=== PATIENT | female | born 1970 | race Caucasian/White ===

== ENCOUNTER 2018-09-16 15:41 | Emergency (ER) | payer OTHER ==
[2018-09-16 15:49] VITALS: RESP 18
--- NOTE | 2018-09-16 15:58 | ED ---
Psych HPI - General Chief Complaint: Psychiatric Symptoms Stated Complaint: psych eval Time Seen by Provider: 09/16/18 15:49 Source: patient, EMS, RN notes reviewed Mode of arrival: EMS Limitations: no limitations - History of Present Illness Initial Comments: 48-year-old female presents emergency department has transfer from [facility] for psychiatric evaluation. Patient presented for bizarre behaviors, altered mental status, stress anxiety. Patient states this all started after she was cleaning out her parents house and which her father recently passed. Patient states that all the stressors caught up to her. Patient states that she just does not feel well she denies any suicidal or homicidal. Denies any illicit drug use. Patient denies any current alcohol abuse. He has no physical complaints. - Related Data Home Medications Medication Instructions Recorded Confirmed Naproxen Sodium [Aleve] 220 mg PO DAILY PRN 09/16/18 09/16/18 Allergies Allergy/AdvReac Type Severity Reaction Status Date / Time adhesive tape Allergy Anaphylaxis Verified 09/16/18 16:08 tramadol Allergy Anaphylaxis Verified 09/16/18 16:08 Review of Systems ROS Statement: Those systems with pertinent positive or pertinent negative responses have been documented in the HPI. ROS Other: All systems not noted in ROS Statement are negative. Past Medical History Past Medical History: No Reported History History of Any Multi-Drug Resistant Organisms: None Reported Past Surgical History: Tubal Ligation Past Psychological History: Anxiety Smoking Status: Current every day smoker Past Alcohol Use History: Occasional Past Drug Use History: None Reported General Exam Limitations: no limitations General appearance: alert, in no apparent distress, anxious Head exam: Present: atraumatic, normocephalic, normal inspection Eye exam: Present: normal appearance, PERRL, EOMI. Absent: scleral icterus, conjunctival injection, periorbital swelling ENT exam: Present: normal exam, normal oropharynx, mucous membranes moist, TM's normal bilaterally Neck exam: Present: normal inspection, full ROM. Absent: tenderness, meningismus, lymphadenopathy Respiratory exam: Present: normal lung sounds bilaterally. Absent: respiratory distress, wheezes, rales, rhonchi, stridor Cardiovascular Exam: Present: regular rate, normal rhythm, normal heart sounds. Absent: systolic murmur, diastolic murmur, rubs, gallop, clicks GI/Abdominal exam: Present: soft, normal bowel sounds. Absent: distended, tenderness, guarding, rebound, rigid Neurological exam: Present: alert, oriented X3, CN II-XII intact Psychiatric exam: Present: anxious Course Vital Signs 09/16/18 09/16/18 15:42 18:44 Temperature 97.4 F L 98.0 F Pulse Rate 82 74 Respiratory 18 18 Rate Blood Pressure 149/99 149/95 O2 Sat by Pulse 99 97 Oximetry Medical Decision Making - Medical Decision Making Patient signed out AGAINST MEDICAL ADVICE Dr. Guerrero aware. Disposition Clinical Impression: Acute anxiety Disposition: Left Against Medical Advice Referrals: Luisana Marquez MD [Primary Care Provider] - 1-2 days
[2018-09-16 18:45] VITALS: BP 149/95; PULSE 74; TEMP 98
== END 2018-09-16 18:45 | disposition left against medical advice (07) ==
LOC: EC 15:41
DX: F41.9 Anxiety disorder, unspecified (principal); R41.82 Altered mental status, unspecified; F43.8 Other reactions to severe stress; F17.200 Nicotine dependence, unspecified, uncomplicated; Z88.5 Allergy status to narcotic agent; Z91.048 Other nonmedicinal substance allergy status; Z53.20 Procedure and treatment not carried out because of patient's decision for unspecified reasons
CPT/HCPCS: 99284

== ENCOUNTER 2019-07-17 21:12 | Inpatient (IN) | payer OTHER ==
[2019-07-17] MEDS ORDERED: IPRATROPIUM-ALBUTEROL 3 ML NEB INHALATION STA (21:23)
[2019-07-17] MEDS ORDERED: methylPREDNISolone SOD SUCCI 125 MG/2 ML VIAL IV STA (21:23)
--- NOTE | 2019-07-17 21:35 | ED ---
SOB HPI - General Stated Complaint: Shortness of Breath Time Seen by Provider: 07/17/19 21:15 Source: patient, EMS Limitations: physical limitation (Dyspnea) - History of Present Illness Initial Comments: Patient's 49-year-old woman brought from home by ambulance. History limited as patient is very dyspneic. She states has been having shortness of breath worsening all day. She found she can no longer breathe at home because it was "too hot inside." EMS arrived to find her sitting on the porch outside in respiratory distress. Patient denies chest pain. MD Complaint: shortness of breath Onset/Timin -: hour(s) Consistency: constant Improves With: upright position Worsens With: lying flat Known History Of: COPD Associated Symptoms: denies other symptoms - Related Data Home Medications Medication Instructions Recorded Confirmed Naproxen Sodium [Aleve] 220 mg PO DAILY PRN 09/16/18 09/16/18 Allergies Allergy/AdvReac Type Severity Reaction Status Date / Time adhesive tape Allergy Anaphylaxis Verified 09/16/18 16:08 influenza virus vaccine, Allergy Unknown Verified 07/17/19 21:30 specific tetanus immune globulin Allergy Unknown Verified 07/17/19 21:30 tramadol Allergy Anaphylaxis Verified 09/16/18 16:08 Review of Systems ROS Statement: Those systems with pertinent positive or pertinent negative responses have been documented in the HPI. ROS Other: All systems not noted in ROS Statement are negative. Limitations: ROS unobtainable due to patients medical condition Constitutional: Denies: fever Respiratory: Reports: cough, dyspnea, wheezes. Denies: hemoptysis Cardiovascular: Denies: chest pain, edema, syncope Gastrointestinal: Denies: abdominal pain, vomiting Musculoskeletal: Denies: back pain Skin: Denies: rash Neurological: Denies: headache Past Medical History Past Medical History: No Reported History History of Any Multi-Drug Resistant Organisms: None Reported Past Surgical History: Tubal Ligation Past Psychological History: Anxiety Smoking Status: Current every day smoker Past Alcohol Use History: Occasional Past Drug Use History: None Reported General Exam General appearance: alert, in distress Head exam: Present: atraumatic, normocephalic Eye exam: Present: normal appearance Neck exam: Present: full ROM Respiratory exam: Present: respiratory distress, wheezes, accessory muscle use, decreased breath sounds. Absent: rales, rhonchi, stridor Cardiovascular Exam: Present: normal rhythm, tachycardia, normal heart sounds. Absent: systolic murmur, diastolic murmur, rubs, gallop GI/Abdominal exam: Present: soft. Absent: distended, tenderness, guarding, rebound, rigid, mass Extremities exam: Present: normal inspection, normal capillary refill. Absent: pedal edema, calf tenderness Back exam: Present: normal inspection. Absent: CVA tenderness (R), CVA tenderness (L) Neurological exam: Present: alert Skin exam: Present: warm, dry, intact, normal color. Absent: rash Course Vital Signs 07/17/19 07/17/19 07/17/19 21:25 21:59 22:05 Temperature 98.4 F Pulse Rate 107 H 109 H 105 H Respiratory 29 H 24 Rate Blood Pressure 124/95 155/106 O2 Sat by Pulse 91 L 99 Oximetry 07/17/19 07/17/19 22:47 23:11 Temperature Pulse Rate 102 H 114 H Respiratory 30 H Rate Blood Pressure 132/80 O2 Sat by Pulse 93 L Oximetry Medical Decision Making - Lab Data Result diagrams: 07/17/19 21:20 07/17/19 21:20 Lab Results 07/17/19 07/17/19 07/17/19 Range/Units 21:20 21:20 21:20 WBC 11.3 H (3.8-10.6) k/uL RBC 5.06 (3.80-5.40) m/uL Hgb 16.1 H (11.4-16.0) gm/dL Hct 49.7 H (34.0-46.0) % MCV 98.4 (80.0-100.0) fL MCH 31.9 (25.0-35.0) pg MCHC 32.5 (31.0-37.0) g/dL RDW 12.6 (11.5-15.5) % Plt Count 300 (150-450) k/uL Neutrophils % (Manual) 81 % Lymphocytes % (Manual) 9 % Monocytes % (Manual) 9 % Eosinophils % (Manual) 1 % Neutrophils # (Manual) 9.15 H (1.3-7.7) k/uL Lymphocytes # (Manual) 1.02 (1.0-4.8) k/uL Monocytes # (Manual) 1.02 H (0-1.0) k/uL Eosinophils # (Manual) 0.11 (0-0.7) k/uL Nucleated RBCs 0 (0-0) /100 WBC Manual Slide Review Performed PT 9.6 (9.0-12.0) sec INR 0.9 (<1.2) APTT 24.1 (22.0-30.0) sec D-Dimer 0.21 (<0.60) mg/L FEU Sodium 135 L (137-145) mmol/L Potassium 4.1 (3.5-5.1) mmol/L Chloride 100 (98-107) mmol/L Carbon Dioxide 29 (22-30) mmol/L Anion Gap 6 mmol/L BUN 9 (7-17) mg/dL Creatinine 0.82 (0.52-1.04) mg/dL Est GFR (CKD-EPI)AfAm >90 (>60 ml/min/1.73 sqM) Est GFR (CKD-EPI)NonAf 83 (>60 ml/min/1.73 sqM) Glucose 107 H (74-99) mg/dL Plasma Lactic Acid Kyle (0.7-2.0) mmol/L Calcium 9.0 (8.4-10.2) mg/dL Magnesium 2.1 (1.6-2.3) mg/dL Total Bilirubin 0.7 (0.2-1.3) mg/dL AST 21 (14-36) U/L ALT 15 (4-34) U/L Alkaline Phosphatase 74 (38-126) U/L Troponin I (0.000-0.034) ng/mL NT-Pro-B Natriuret Pep pg/mL Total Protein 7.1 (6.3-8.2) g/dL Albumin 4.1 (3.5-5.0) g/dL Influenza Type A RNA (Not Detectd) Influenza Type B (PCR) (Not Detectd) 07/17/19 07/17/19 07/17/19 Range/Units 21:20 21:20 21:20 WBC (3.8-10.6) k/uL RBC (3.80-5.40) m/uL Hgb (11.4-16.0) gm/dL Hct (34.0-46.0) % MCV (80.0-100.0) fL MCH (25.0-35.0) pg MCHC (31.0-37.0) g/dL RDW (11.5-15.5) % Plt Count (150-450) k/uL Neutrophils % (Manual) % Lymphocytes % (Manual) % Monocytes % (Manual) % Eosinophils % (Manual) % Neutrophils # (Manual) (1.3-7.7) k/uL Lymphocytes # (Manual) (1.0-4.8) k/uL Monocytes # (Manual) (0-1.0) k/uL Eosinophils # (Manual) (0-0.7) k/uL Nucleated RBCs (0-0) /100 WBC Manual Slide Review PT (9.0-12.0) sec INR (<1.2) APTT (22.0-30.0) sec D-Dimer (<0.60) mg/L FEU Sodium (137-145) mmol/L Potassium (3.5-5.1) mmol/L Chloride (98-107) mmol/L Carbon Dioxide (22-30) mmol/L Anion Gap mmol/L BUN (7-17) mg/dL Creatinine (0.52-1.04) mg/dL Est GFR (CKD-EPI)AfAm (>60 ml/min/1.73 sqM) Est GFR (CKD-EPI)NonAf (>60 ml/min/1.73 sqM) Glucose (74-99) mg/dL Plasma Lactic Acid Kyle 1.8 (0.7-2.0) mmol/L Calcium (8.4-10.2) mg/dL Magnesium (1.6-2.3) mg/dL Total Bilirubin (0.2-1.3) mg/dL AST (14-36) U/L ALT (4-34) U/L Alkaline Phosphatase (38-126) U/L Troponin I <0.012 (0.000-0.034) ng/mL NT-Pro-B Natriuret Pep 283 pg/mL Total Protein (6.3-8.2) g/dL Albumin (3.5-5.0) g/dL Influenza Type A RNA (Not Detectd) Influenza Type B (PCR) (Not Detectd) 07/17/19 Range/Units 21:45 WBC (3.8-10.6) k/uL RBC (3.80-5.40) m/uL Hgb (11.4-16.0) gm/dL Hct (34.0-46.0) % MCV (80.0-100.0) fL MCH (25.0-35.0) pg MCHC (31.0-37.0) g/dL RDW (11.5-15.5) % Plt Count (150-450) k/uL Neutrophils % (Manual) % Lymphocytes % (Manual) % Monocytes % (Manual) % Eosinophils % (Manual) % Neutrophils # (Manual) (1.3-7.7) k/uL Lymphocytes # (Manual) (1.0-4.8) k/uL Monocytes # (Manual) (0-1.0) k/uL Eosinophils # (Manual) (0-0.7) k/uL Nucleated RBCs (0-0) /100 WBC Manual Slide Review PT (9.0-12.0) sec INR (<1.2) APTT (22.0-30.0) sec D-Dimer (<0.60) mg/L FEU Sodium (137-145) mmol/L Potassium (3.5-5.1) mmol/L Chloride (98-107) mmol/L Carbon Dioxide (22-30) mmol/L Anion Gap mmol/L BUN (7-17) mg/dL Creatinine (0.52-1.04) mg/dL Est GFR (CKD-EPI)AfAm (>60 ml/min/1.73 sqM) Est GFR (CKD-EPI)NonAf (>60 ml/min/1.73 sqM) Glucose (74-99) mg/dL Plasma Lactic Acid Kyle (0.7-2.0) mmol/L Calcium (8.4-10.2) mg/dL Magnesium (1.6-2.3) mg/dL Total Bilirubin (0.2-1.3) mg/dL AST (14-36) U/L ALT (4-34) U/L Alkaline Phosphatase (38-126) U/L Troponin I (0.000-0.034) ng/mL NT-Pro-B Natriuret Pep pg/mL Total Protein (6.3-8.2) g/dL Albumin (3.5-5.0) g/dL Influenza Type A RNA Not Detected (Not Detectd) Influenza Type B (PCR) Not Detected (Not Detectd) - EKG Data -: EKG Interpreted by Me EKG shows normal: sinus rhythm (With frequent PVCs), intervals (Normal), QRS complexes (Low-voltage QRS complex) Rate: tachycardia (Rate 119 bpm) Disposition Clinical Impression: COPD exacerbation, COPD with acute exacerbation Disposition: ADMITTED IP TO THIS HOSP Condition: Fair Referrals: Luisana Marquez MD [Primary Care Provider] - 1-2 days
[2019-07-17 21:46] LABS: HCT 49.7 % (34.0-46.0); HGB 16.1 gm/dL (11.4-16.0); MCH 31.9 pg (25.0-35.0); MCHC 32.5 g/dL (31.0-37.0); MCV 98.4 fL (80.0-100.0); Mean Platelet Volume 7.4; Platelet Count 300 k/uL (150-450); RBC 5.06 m/uL (3.80-5.40); RDW 12.6 % (11.5-15.5); WBC 11.3 k/uL (3.8-10.6)
--- NOTE | 2019-07-17 21:51 | XR ---
EXAMINATION TYPE: XR chest 1V portable DATE OF EXAM: 07/17/2019 COMPARISON: 04/12/2012 HISTORY: Short of breath TECHNIQUE: FINDINGS: Heart and mediastinum are normal. Lungs are clear. Diaphragm is normal. Bony thorax is inta ct. Pulmonary vascularity is normal. There are chest leads. 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 IMPRESSION: No active cardiopulmonary disease. No change.
[2019-07-17 21:57] LABS: D-Dimer 0.21 mg/L FEU (<0.60); INR 0.9 (<1.2); Partial Thromboplastin Time 24.1 sec (22.0-30.0); Prothrombin Time 9.6 sec (9.0-12.0)
[2019-07-17 22:03] LABS: ALT 15 U/L (4-34); AST 21 U/L (14-36); African American GFR (CKD) >90 (>60 ml/min/1.73 sqM); Albumin 4.1 g/dL (3.5-5.0); Alkaline Phosphatase 74 U/L (38-126); Anion Gap 6 mmol/L; Blood Urea Nitrogen 9 mg/dL (7-17); Carbon Dioxide 29 mmol/L (22-30); Chloride 100 mmol/L (98-107); Glucose 107 mg/dL (74-99); Magnesium 2.1 mg/dL (1.6-2.3); Non-African American GFR(CKD) 83 (>60 ml/min/1.73 sqM); Potassium 4.1 mmol/L (3.5-5.1); Sodium 135 mmol/L (137-145); Total Bilirubin 0.7 mg/dL (0.2-1.3); Total Protein 7.1 g/dL (6.3-8.2)
[2019-07-17 22:20] LABS: Eosinophils # (M) 0.11 k/uL (0-0.7); Lymphocytes # (M) 1.02 k/uL (1.0-4.8); Monocytes # (M) 1.02 k/uL (0-1.0); Neutrophils # (M) 9.15 k/uL (1.3-7.7); Neutrophils % (M) 81 %; Nucleated Red Blood Cells 0 /100 WBC (0-0); Total Cells Counted 100
[2019-07-17] MEDS ORDERED: ALBUTEROL NEBULIZED 2.5 MG/3 ML INHALATION STA (23:54)
[2019-07-17] MEDS ORDERED: ALBUTEROL NEBULIZED 2.5 MG/3 ML INHALATION PRN (23:55)
[2019-07-18 00:29] LABS: Appearance,Urine Clear (Clear); Bilirubin,Urine Negative (Negative); Blood,Urine Trace (Negative); Color,Urine Yellow; Glucose,Urine (UA) Negative (Negative); Ketones,Urine Negative (Negative); Leukocyte Esterase,Urine Negative (Negative); Mucus,Urine Rare /hpf; Nitrite,Urine Negative (Negative); PH, Urine 5.5 (5.0-8.0); Protein,Urine Negative (Negative); RBC,Urine 1 /hpf (0-5); Specific Gravity,Urine 1.012 (1.001-1.035); Squamous Epithelial Cell,Urine 3 /hpf (0-4); Urobilinogen,Urine <2.0 mg/dL (<2.0); WBC,Urine 1 /hpf (0-5)
[2019-07-18 00:42] LABS: Cocaine Screen,Urine Not Detected (NotDetected); Phencyclidine Screen,Urine Not Detected (NotDetected)
[2019-07-18 00:43] LABS: Amphetamine Screen,Urine Detected (NotDetected); Barbiturate Screen,Urine Not Detected (NotDetected); Benzodiazepines Screen,Urine Not Detected (NotDetected); Methadone Screen, Urine Not Detected (NotDetected); Opiate Screen,Urine Detected (NotDetected); Oxycodone Screen, Urine Not Detected (NotDetected); Tricyclic Antidepressant,Urine Not Detected (NotDetected); Urn Cannabinoid Scrn Not Detected (NotDetected)
[2019-07-18] MEDS: SODIUM CHLORIDE 0.9% 1,000 ML IV SCH ×2 (07:10→08:57)
[2019-07-18] MEDS: IPRATROPIUM-ALBUTEROL 3 ML NEB INHALATION SCH ×4 (07:39→20:20)
[2019-07-18] MEDS ORDERED: predniSONE 20 MG TAB PO SCH (09:00)
[2019-07-18] MEDS ORDERED: IPRATROPIUM-ALBUTEROL 3 ML NEB INHALATION PRN (10:08)
[2019-07-18] MEDS ORDERED: ACETAMINOPHEN TAB 500 MG TAB PO PRN (10:09)
[2019-07-18] MEDS ORDERED: ALPRAZolam 0.25 MG TAB PO PRN (10:09)
[2019-07-18] MEDS: HYDROcodone/APAP 7.5-325MG 1 EACH TAB PO PRN ×2 (11:16→20:52)
[2019-07-18 11:51] LABS: Glucose,Whole Blood 143 mg/dL (75-99)
[2019-07-18] MEDS: INSULIN ASPART (NovoLOG) 100 UNIT/ML VIAL SQ SCH ×3 (12:46→20:51)
[2019-07-18] MEDS: HEPARIN SODIUM,PORCINE 5,000 UNIT/ML 1 ML VIAL SQ SCH ×2 (12:54→20:52)
[2019-07-18] MEDS: methylPREDNISolone SOD SUCCI 125 MG/2 ML VIAL IV SCH ×2 (12:54→20:52)
[2019-07-18] MEDS: NICOTINE 14MG/24HR PATCH TRANSDERM SCH (12:54)
[2019-07-18 17:16] LABS: Glucose,Whole Blood 222 mg/dL (75-99)
--- NOTE | 2019-07-18 18:52 | HP ---
HISTORY AND PHYSICAL CHIEF COMPLAINT: Shortness of breath. HISTORY OF PRESENT ILLNESS: This 49-year-old woman with a past medical history of no significant medical issues except some anxiety, being followed by Dr. Marquez in the outpatient setting, had increasing shortness of breath. Patient had increased shortness of breath with cough and sputum for the last couple of days. Patient apparently continues to smoke. After bronchodilators, the patient is feeling slightly better. Of note, apparently the patient's daughter and son-in-law were visiting and the daughter spent some time in [place] and recently came back about 2 weeks ago. The apparently did not go to [place] but was symptomatic with shortness of breath and cough and similar symptoms. We contacted the Infection Control Division through the staff and they actually cleared the patient as far as the new coronavirus NCOV is concerned. The patient is being closely monitored at this time. There is no history of any fever, rigor or chills. No history of headache, loss of consciousness, seizures. PAST MEDICAL HISTORY: History of anxiety. History of nicotine dependence. HOME MEDICATIONS: 1. Spiriva 1 puff daily. 2. [place] 1 tablet b.i.d. p.r.n. 3. Zyrtec 10 mg p.o. daily. 4. Ventolin 2.5 q.i.d. p.r.n. ALLERGIES: ADHESIVE TAPES, INFLUENZA, TETANUS TOXOID, ULTRAM. FAMILY HISTORY: No history of heart disease or strokes in the family. SOCIAL HISTORY: History of smoking. No history alcohol. No history of substance abuse. REVIEW OF SYSTEMS: ENT: No diminished hearing. No diminished vision. CARDIOVASCULAR SYSTEM: No angina, palpitations. RESPIRATORY SYSTEM: As mentioned earlier. GI: No nausea, vomiting. : No dysuria or retention. NERVOUS SYSTEM: No numbness, weakness. ALLERGY/IMMUNOLOGY: No asthma, hayfever. MUSCULOSKELETAL: As mentioned earlier. HEMATOLOGY/ONCOLOGY: No history of anemia. ENDOCRINE: No history of diabetes, hypothyroidism. CONSTITUTIONAL: As mentioned earlier. DERMATOLOGY: Negative. RHEUMATOLOGY: Negative. PSYCHIATRY: As mentioned earlier. PHYSICAL EXAMINATION: Patient is alert and oriented x3. Pulse is 100, blood pressure 124/82, respiration 12, temperature 98.3, pulse ox 100% on BiPAP. HEENT: Conjunctivae normal. Oral mucosa moist. NECK: No jugular venous distention. No carotid bruit. No lymph node enlargement. CARDIOVASCULAR SYSTEM: S1, S2 muffled. No S3. No S4. RESPIRATORY SYSTEM: Breath sounds diminished at the bases. Bilateral scattered rhonchi and crackles. Expiratory wheezing also present. ABDOMEN: Soft, non-tender. No mass palpable. LEGS: No edema. No swelling. NERVOUS SYSTEM: Higher functions as mentioned earlier. Moves all 4 limbs. No focal motor or sensory deficit. LYMPHATICS: No lymph node palpable in neck, axillae or groin. SKIN: No ulcer, rash, bleeding. JOINTS: No active deforming arthropathy. LABS/IMAGING: WBC 7.3, sodium 135. Glucose 143. UA noted. Drug screen is positive for amphetamines and opiates. Influenza negative. Chest x-ray, which was personally reviewed by me, showed increased bronchovascular markings. ASSESSMENT: 1. Chronic obstructive pulmonary disease, acute exacerbation, with acute purulent tracheobronchitis with acute hypoxic respiratory failure; was on BiPAP. 2. Increased white count. 3. Continued ongoing nicotine dependence. 4. Elevated random blood sugar, possibly secondary to steroids. 5. Hyponatremia, mild. 6. History of anxiety. 7. NO CODE NO CPR, NO VENT. RECOMMENDATIONS AND DISCUSSION: In this 49-year-old woman who presented with multiple complex medical issues, we will monitor the patient closely. Will optimize the bronchodilator treatment. Empiric antibiotics. Flu is negative. IV steroids. Monitor blood sugars closely. Otherwise, we will continue to monitor. Obtain cultures. Pulmonary consult evaluations. Smoking cessation advised. Prognosis guarded because of multiple complex medical issues. Repeat labs are ordered. Discussed with the patient, who understands and agrees. Further recommendations to follow. A copy of this dictation is being forwarded to Dr. Marquez, who is the primary physician. MMODL / IJN: [id number] /
[2019-07-18] MEDS: BUDESONIDE 1 MG/2 ML NEBU INHALATION SCH (20:20)
[2019-07-18] MEDS: FORMOTEROL FUMARATE 20 MCG/2 ML NEBU INHALATION SCH (20:38)
[2019-07-18 20:47] LABS: Glucose,Whole Blood 128 mg/dL (75-99)
[2019-07-18] MEDS: LORazepam 0.5 MG TAB PO PRN (21:44)
--- NOTE | 2019-07-18 22:34 | CONS ---
CONSULTATION PULMONARY/CRITICAL CARE CONSULTATION: DATE OF SURGERY: July 18, 2019. REASON FOR CONSULTATION: Shortness of breath. HISTORY OF PRESENT ILLNESS: This is a 49-year-old female who sees Dr. Marquez as a primary. She apparently comes into the emergency room at 21:12 on February 14 for complaints of increasing shortness of breath. She apparently had been having shortness of breath for some time prior to admission. She was found by EMS to be on the front porch, very short of breath with severe conversational dyspnea. The patient was brought in by ambulance to the emergency room to be evaluated. She apparently was too hot inside of her house and that is why she was sitting on the front porch. She apparently denied any chest pain or pressure. She does admit to cough and wheezing. She does admit to some minimal cough and minimal phlegm production. There is no chest pain or chest discomfort. She denies any nausea or vomiting or diarrhea. There are no genitourinary complaints. The patient is feeling a bit better today compared to yesterday. She apparently is a heavy smoker. MEDICATIONS: Reviewed. She is on naproxen, and also on Spiriva, [place], Zyrtec, albuterol and albuterol inhaler. ALLERGIES: Include ADHESIVE TAPE, INFLUENZA VACCINE, TETANUS VACCINE, AND TRAMADOL. MEDICAL HISTORY: Includes COPD. The patient also apparently has chronic pain syndrome. SURGICAL HISTORY: Includes tubal ligation. SOCIAL HISTORY: Positive for ongoing tobacco use. She also has a history of occasional alcohol use. Interestingly, her drug screen was positive for amphetamines, methamphetamines and opiates. FAMILY HISTORY: Negative. States his mother and father were healthy. REVIEW OF SYSTEMS: CONSTITUTIONAL weakness. NEUROLOGIC negative. HEENT negative. CARDIOVASCULAR negative. PULMONARY: Shortness of breath, chest tightness, wheezing and cough. GI negative. negative. RHEUMATOLOGIC negative. IMMUNOLOGIC negative. ENDOCRINOLOGIC negative. DERMATOLOGIC negative. PHYSICAL EXAMINATION: VITAL SIGNS: Current vital signs are reviewed. Temperature is 98.3, heart rate 103, respiratory rate 22, blood pressure 124/82, and saturations are 94%. On BiPAP, she was 100%. Appears mildly tachypneic and dyspneic. Was lying on her right side, sleeping when I first walked into the room. HEENT examination is grossly unremarkable. Nasal O2 noted. NECK: Supple. Full range of motion. No adenopathy. Neck veins are flat. CARDIOVASCULAR: Examination reveals regular rhythm and rate. Heart rate right around 100 and regular. S1, S2 normal. LUNGS: Reveal diffuse inspiratory and expiratory wheezes and rhonchi. There is prolongation on forced maneuver. ABDOMEN: Obese. Bowel sounds are heard. EXTREMITIES are intact. No cyanosis, clubbing, or edema. SKIN: Without rash. NEUROLOGIC: Examination is brief but nonfocal. LAB DATA: Reviewed. White count is 11.3, hemoglobin 16.1, hematocrit 49.7, platelet count 300,000, PT/INR PTT normal. D-dimer normal. Sodium 135, potassium 4.1, chloride 100, CO2 29, anion gap is 6. BUN 9, creatinine 0.82. The rest of the labs and comprehensive metabolic profile looks fine. Urine is negative. Her drug screen was positive for opiates, amphetamines and methamphetamines. Influenza studies were negative. Chest x-ray shows no active disease. Medications are reviewed. From the full pulmonary standpoint, the patient is on Pulmicort 1 mg and formoterol 20 mcg, Rocephin, DuoNeb, and Solu-Medrol. She is also on a nicotine patch. ASSESSMENT: 1. Chronic obstructive pulmonary disease exacerbation complicated by purulent tracheobronchitis, without cameron pneumonia. 2. History of ongoing tobacco use with nicotine addiction. 3. Obesity. 4. Chronic pain syndrome. 5. Polysubstance abuse. PLAN: The patient is counseled about the importance of smoking cessation. Her medications are appropriate. We will place her on oral antibiotics. She does not need any IV antibiotics at this time. The patient is on appropriate medications including short- acting beta agonist, short-acting muscarinic antagonist, long-acting beta agonist, inhaled corticosteroids, systemic corticosteroids and antibiotics. Additional recommendations and suggestions are forthcoming. Prognosis is guarded. We will continue to follow. MMODL / IJN: [id number] /
[2019-07-19] MEDS: methylPREDNISolone SOD SUCCI 125 MG/2 ML VIAL IV SCH ×5 (00:03→23:16)
[2019-07-19 07:19] LABS: Glucose,Whole Blood 172 mg/dL (75-99)
[2019-07-19] MEDS: NICOTINE 14MG/24HR PATCH TRANSDERM SCH (07:39)
[2019-07-19] MEDS: BUDESONIDE 1 MG/2 ML NEBU INHALATION SCH ×2 (07:56→20:34)
[2019-07-19] MEDS: FORMOTEROL FUMARATE 20 MCG/2 ML NEBU INHALATION SCH ×2 (07:56→20:34)
[2019-07-19] MEDS: IPRATROPIUM-ALBUTEROL 3 ML NEB INHALATION SCH ×4 (07:56→20:34)
[2019-07-19 08:09] LABS: African American GFR (CKD) >90 (>60 ml/min/1.73 sqM); Anion Gap 8 mmol/L; Blood Urea Nitrogen 11 mg/dL (7-17); Calcium 8.7 mg/dL (8.4-10.2); Carbon Dioxide 25 mmol/L (22-30); Chloride 104 mmol/L (98-107); Glucose 155 mg/dL (74-99); Non-African American GFR(CKD) >90 (>60 ml/min/1.73 sqM); Potassium 4.5 mmol/L (3.5-5.1); Sodium 137 mmol/L (137-145)
[2019-07-19 08:16] LABS: Basophils # (A) 0.3 k/uL (0-0.2); Basophils % (A) 1 %; Eosinophils # (A) 0.1 k/uL (0-0.7); Eosinophils % (A) 0 %; HCT 45.9 % (34.0-46.0); HGB 14.8 gm/dL (11.4-16.0); Lymphocytes # (A) 0.2 k/uL (1.0-4.8); Lymphocytes % (A) 1 %; MCH 32.1 pg (25.0-35.0); MCHC 32.2 g/dL (31.0-37.0); MCV 99.5 fL (80.0-100.0); Monocytes # (A) 0.7 k/uL (0-1.0); Monocytes % (A) 3 %; Neutrophils # (A) 20.8 k/uL (1.3-7.7); Neutrophils % (A) 94 %; Platelet Count 317 k/uL (150-450); RBC 4.61 m/uL (3.80-5.40); RDW 12.7 % (11.5-15.5); WBC 22.1 k/uL (3.8-10.6)
[2019-07-19 09:05] LABS: T4, Free (Free Thyroxine) 0.74 ng/dL (0.78-2.19)
[2019-07-19] MEDS: AZITHROMYCIN 500 MG TAB PO SCH (09:59)
[2019-07-19] MEDS: PANTOPRAZOLE 40 MG TABLET PO SCH (09:59)
[2019-07-19] MEDS: HYDROcodone/APAP 7.5-325MG 1 EACH TAB PO PRN ×2 (10:00→20:09)
[2019-07-19] MEDS: LORATADINE 10 MG TAB PO SCH (10:00)
[2019-07-19] MEDS: HEPARIN SODIUM,PORCINE 5,000 UNIT/ML 1 ML VIAL SQ SCH ×2 (10:11→20:10)
[2019-07-19] MEDS: INSULIN ASPART (NovoLOG) 100 UNIT/ML VIAL SQ SCH ×4 (10:12→20:07)
[2019-07-19 11:52] LABS: Glucose,Whole Blood 111 mg/dL (75-99)
--- NOTE | 2019-07-19 12:13 | PN ---
PROGRESS NOTE PULMONARY/CRITICAL CARE PROGRESS NOTE: DATE OF SERVICE: July 19, 2019. This is a 49-year-old female who was seen yesterday in consultation. She presented to the emergency room on July 17 with complaints of increasing shortness of breath. She apparently was found by EMS on the front porch in the cold because she states that the house was too hot. In addition, she was coughing and wheezing. She had tightness in her chest. She was producing minimal phlegm. She was essentially admitted with a diagnosis of COPD exacerbation. Her primary care physician is Dr. Marquez. The patient does have a history of COPD as well as chronic pain syndrome. She is currently doing much better. PHYSICAL EXAMINATION: VITAL SIGNS: Current vital signs are reviewed. Temperature is 98.1, heart rate 102, respiratory rate 18, blood pressure is 116/78, mean 90 and 3 L saturations 98%. GENERAL: Appears in no acute distress. HEENT: Examination is grossly unremarkable. Mucous membranes are moist. No oral lesions. NECK: Supple. Full range of motion. No adenopathy or thyromegaly. Neck veins are flat. CARDIOVASCULAR: Examination reveals regular rhythm and rate. S1, S2 normal. Heart sounds are distant. LUNGS: Reveal coarse expiratory rhonchi and wheezes. Breath sounds are diminished. There is prolongation on forced maneuver. The patient coughs and wheezes on forced maneuver. ABDOMEN: Soft. Bowel sounds are heard. EXTREMITIES: Are intact. No cyanosis, clubbing, or edema. Microbiologic studies are negative. LABS: Labs are reviewed. White count 22.1, hemoglobin 14.8, hematocrit 45.9, platelet count 317,000. Sodium, potassium, chloride and CO2 all normal. Anion gap normal. BUN and creatinine were 11 and 0.59. Urine is essentially negative. Drug screen was positive for opiates, amphetamines, methamphetamines. A chest x-ray that was done on the shows no active cardiopulmonary disease. MEDICATIONS: Medications are reviewed as they were yesterday. She is on appropriate medications including oral Zithromax, Pulmicort 1 mg, formoterol 20 mcg, DuoNeb, and Solu-Medrol. ASSESSMENT: 1. Chronic obstructive pulmonary disease exacerbation complicated by purulent tracheobronchitis, without cameron pneumonia. 2. History of ongoing tobacco use with nicotine addiction. 3. Obesity. 4. Chronic pain syndrome. 5. Polysubstance abuse. PLAN: The patient will continue to be treated in standard fashion. The patient is on short- acting beta agonist, short-acting muscarinic antagonist, long-acting beta agonist, and inhaled corticosteroids. The patient remains on oral antibiotic as well as Solu- Medrol. Hopeful discharge within the next 24 to 48 hours. It may take a bit longer. Additional recommendations and suggestions are forthcoming. MMERONL / IJN: [id number] /
[2019-07-19 16:47] LABS: Glucose,Whole Blood 220 mg/dL (75-99)
[2019-07-19 20:03] LABS: Glucose,Whole Blood 177 mg/dL (75-99)
--- NOTE | 2019-07-19 21:45 | PN ---
PROGRESS NOTE DATE OF SERVICE: 07/19/2019 This 49-year-old woman with a past medical history of multiple medical problems, admitted for COPD acute exacerbation, acute purulent tracheobronchitis. The patient is closely monitored. The patient is on IV steroids. No chest pain. PAST MEDICAL HISTORY: Reviewed. REVIEW OF SYSTEMS: CARDIOVASCULAR: No angina. RESPIRATORY: As mentioned earlier. GI: As mentioned earlier. : No dysuria. NERVOUS SYSTEM: No numbness or weakness. CURRENT MEDICATIONS: 1. Tylenol p.r.n. 2. [place] 7.5 p.r.n. 3. DuoNeb q.i.d. and p.r.n. 4. Zithromax 500 mg. 5. Pulmicort 1 mg b.i.d. 6. Perforomist 20 mg. 7. Heparin. 8. Claritin. 9. Ativan. 10.Solu-Medrol 60 IV q.6 hours. 11.Habitrol 14. 12.Protonix. PHYSICAL EXAMINATION: Alert and oriented x3. Pulse 71, blood pressure 117/60, respiration 18, temperature 97.8, pulse ox 98% on room air. HEENT: Conjunctivae normal. NECK: No JVD. CARDIOVASCULAR: S1, S2 muffled. LUNGS: Diminished breath sounds at the bases. Bilateral scattered rhonchi and crackles. ABDOMEN: Soft, nontender. LEGS: No swelling. NERVOUS SYSTEM: No focal deficits. LAB STUDIES: WBC 22.2, hemoglobin 14.8, sodium 137, potassium 4.5. TSH is 0.353 and free T4 is 0.74. ASSESSMENT: 1. Chronic obstructive pulmonary disease acute exacerbation with acute purulent tracheobronchitis with acute hypoxic respiratory failure status post BiPAP, present on admission. 2. Increased WBC. 3. Continued ongoing nicotine dependence. 4. Decreased TSH and decreased T4, sick euthyroid syndrome. 5. Elevated random blood sugar, possibly secondary to steroids. 6. Hyponatremia, mild, present on admission. 7. History of anxiety. 8. NO CODE, NO CPR, NO VENT. RECOMMENDATIONS AND DISCUSSION: In this 49-year-old woman who presented with multiple complex medical issues, we will monitor the patient closely, continue the current medication and symptomatic treatment, continue the antibiotics, continue with the rest of medications. The patient is on high-dose IV steroids and bronchodilators. Closely follow with Dr. De Leon. Guarded prognosis because of multiple complex medical issues. Further recommendations to follow. Smoking cessation has been advised. MMODL / IJN: [id number] /
[2019-07-20] MEDS: methylPREDNISolone SOD SUCCI 125 MG/2 ML VIAL IV SCH ×4 (05:26→23:41)
[2019-07-20 07:00] LABS: Glucose,Whole Blood 132 mg/dL (75-99)
[2019-07-20] MEDS: INSULIN ASPART (NovoLOG) 100 UNIT/ML VIAL SQ SCH ×4 (07:24→20:09)
[2019-07-20] MEDS: NICOTINE 14MG/24HR PATCH TRANSDERM SCH (07:26)
[2019-07-20 07:55] LABS: Basophils # (A) 0.1 k/uL (0-0.2); Basophils % (A) 1 %; Eosinophils % (A) 0 %; HCT 43.7 % (34.0-46.0); Lymphocytes # (A) 0.5 k/uL (1.0-4.8); Lymphocytes % (A) 2 %; MCH 31.6 pg (25.0-35.0); MCHC 32.1 g/dL (31.0-37.0); MCV 98.7 fL (80.0-100.0); Mean Platelet Volume 7.8; Monocytes # (A) 0.9 k/uL (0-1.0); Monocytes % (A) 4 %; Neutrophils # (A) 21.5 k/uL (1.3-7.7); Neutrophils % (A) 93 %; Platelet Count 284 k/uL (150-450); RBC 4.43 m/uL (3.80-5.40); RDW 12.7 % (11.5-15.5)
[2019-07-20] MEDS: BUDESONIDE 1 MG/2 ML NEBU INHALATION SCH ×2 (07:57→19:16)
[2019-07-20] MEDS: IPRATROPIUM-ALBUTEROL 3 ML NEB INHALATION SCH ×4 (07:57→19:16)
[2019-07-20] MEDS: FORMOTEROL FUMARATE 20 MCG/2 ML NEBU INHALATION SCH ×2 (07:57→19:32)
[2019-07-20 08:16] LABS: African American GFR (CKD) >90 (>60 ml/min/1.73 sqM); Anion Gap 7 mmol/L; Blood Urea Nitrogen 15 mg/dL (7-17); Calcium 8.8 mg/dL (8.4-10.2); Carbon Dioxide 28 mmol/L (22-30); Chloride 102 mmol/L (98-107); Glucose 136 mg/dL (74-99); Non-African American GFR(CKD) >90 (>60 ml/min/1.73 sqM); Potassium 4.6 mmol/L (3.5-5.1); Sodium 137 mmol/L (137-145)
[2019-07-20] MEDS: HEPARIN SODIUM,PORCINE 5,000 UNIT/ML 1 ML VIAL SQ SCH ×2 (08:17→20:01)
[2019-07-20] MEDS: LORazepam 0.5 MG TAB PO PRN (08:18)
[2019-07-20] MEDS: PANTOPRAZOLE 40 MG TABLET PO SCH (08:18)
[2019-07-20] MEDS: LORATADINE 10 MG TAB PO SCH (08:18)
[2019-07-20] MEDS: AZITHROMYCIN 500 MG TAB PO SCH (08:18)
[2019-07-20 11:43] LABS: Glucose,Whole Blood 145 mg/dL (75-99)
--- NOTE | 2019-07-20 14:38 | P.PN ---
Subjective Progress Note Date: 07/20/19 Principal diagnosis: Acute COPD exacerbation On 07/20/2019 patient seen in follow-up on general medical floor. She is awake and she is resting comfortably in bed, her family is at the bedside, no signs of any respiratory distress, she states her breathing has much improved since admission. She is on 2 L of oxygen and the pulse ox of 90%, denies any fever or chills, denies any complaints of chest pain, no hemoptysis, no nausea. Pt less bronchospastic and dyspneic on today's exam. Today's labs have been reviewed, leukocytosis is fairly stable, at 23,000, hemoglobin is 14. Patient is being treated with Zithromax, IV steroids, nebulized bronchodilators, she has been ambulating in the room, tolerating activity fairly well. Objective - Vital Signs Vital signs: Vital Signs Temp 97.9 F 07/20/19 08:00 Pulse 68 07/20/19 11:34 Resp 18 07/20/19 11:34 BP 110/67 07/20/19 08:00 Pulse Ox 98 07/20/19 08:00 Intake & Output 07/19/19 07/20/19 07/20/19 18:59 06:59 18:59 Intake Total 480 50 546 Balance 480 50 546 Intake: Oral 480 50 546 Other: Voiding Method Toilet Toilet # Voids 3 1 2 - Exam GENERAL EXAM: Alert, very pleasant 49-year-old white female, cooperative oxygen with pulse ox of 90% comfortable in no apparent distress. HEAD: Normocephalic/atraumatic. EYES: Normal reaction of pupils, equal size. Conjunctiva pink, sclera white. NOSE: Clear with pink turbinates. THROAT: No erythema or exudates. NECK: No masses, no JVD, no thyroid enlargement, no adenopathy. CHEST: No chest wall deformity. Symmetrical expansion. LUNGS: Equal air entry with minimal end expiratory wheezes CVS: Regular rate and rhythm, normal S1 and S2, no gallops, no murmurs, no rubs ABDOMEN: Soft, nontender. No hepatosplenomegaly, normal bowel sounds, no guarding or rigidity. EXTREMITIES: No clubbing, no edema, no cyanosis, 2+ pulses and upper and lower extremities. MUSCULOSKELETAL: Muscle strength and tone normal. SPINE: No scoliosis or deformity SKIN: No rashes CENTRAL NERVOUS SYSTEM: Alert and oriented -3. No focal deficits, tone is normal in all 4 extremities. PSYCHIATRIC: Alert and oriented -3. Appropriate affect. Intact judgment and insight. - Labs CBC & Chem 7: 07/20/19 07:14 07/20/19 07:14 Labs: Abnormal Lab Results - Last 24 Hours (Table) 07/19/19 07/19/19 07/20/19 Range/Units 16:46 20:01 06:48 WBC (3.8-10.6) k/uL Neutrophils # (1.3-7.7) k/uL Lymphocytes # (1.0-4.8) k/uL Glucose (74-99) mg/dL POC Glucose (mg/dL) 220 H 177 H 132 H (75-99) mg/dL 07/20/19 07/20/19 07/20/19 Range/Units 07:14 07:14 11:42 WBC 23.0 H (3.8-10.6) k/uL Neutrophils # 21.5 H (1.3-7.7) k/uL Lymphocytes # 0.5 L (1.0-4.8) k/uL Glucose 136 H (74-99) mg/dL POC Glucose (mg/dL) 145 H (75-99) mg/dL Assessment and Plan Plan: Assessment: #1. Acute exacerbation of chronic obstructive pulmonary disease complicated by peeling tracheobronchitis without evidence of cameron pneumonia #2. History of ongoing tobacco use with nicotine addiction #3. Obesity #4. Chronic pain syndrome #5. Polysubstance abuse Plan: Continue current medical treatment, patient is improving, less dyspneic and bronchospastic, she being treated with a combination of antibiotics, nebulized bronchodilators and IV steroids, responding well to treatment, increase activity as tolerated, possible discharge home in the next 24 hours I performed a history & physical examination of the patient and discussed their management with my nurse practitioner, Tori Sahni. I reviewed the nurse practitioner's note and agree with the documented findings and plan of care. Lung sounds are positive for minimal wheezes. The findings and the impression was discussed with the patient. I attest to the documentation by the nurse practitioner. Time with Patient: Less than 30
[2019-07-20 16:31] LABS: Glucose,Whole Blood 124 mg/dL (75-99)
--- NOTE | 2019-07-20 16:40 | PN ---
PROGRESS NOTE DATE OF SERVICE: 07/20/2019 This is a 49-year-old woman who was admitted with COPD exacerbation, as well as cute purulent tracheobronchitis, being closely monitored. Influenza is negative. No chest pain. No palpitations. No fever. PHYSICAL EXAMINATION: Alert and oriented x3. Pulse 70, blood pressure 116/73, respirations 18, temperature 97.9, pulse ox 100% on CPAP. HEENT: Conjunctivae normal. NECK: No JVD. CARDIOVASCULAR: S1, S2 muffled. LUNGS: Diminished breath sounds at the bases. Scattered rhonchi and crackles. ABDOMEN: Soft, nontender. LEGS: No swelling. NERVOUS SYSTEM: No focal deficits. LABS: WBC 23, hemoglobin 14. are noted. ASSESSMENT: 1. Chronic obstructive pulmonary disease acute exacerbation with acute purulent tracheobronchitis with acute hypoxic respiratory failure, status post BiPAP, present on admission. 2. Increased WBC. 3. History of continued ongoing nicotine dependence. 4. Decreased TSH and decreased T4, possible sick euthyroid syndrome. 5. Elevated random blood sugars, possibly secondary to steroids. 6. Hyponatremia, mild, present on admission. 7. History of anxiety. 8. NO CODE, NO CPR, NO VENT. RECOMMENDATIONS AND DISCUSSION: Recommend to continue current medications, management and symptomatic treatment. Slowly increase ambulation. Closely follow with Pulmonary. Continue the IV steroids. Continue the bronchodilators. Guarded prognosis because of multiple complex medical issues. Further recommendations to follow. MMODL / IJN: [id number] /
[2019-07-20] MEDS: HYDROcodone/APAP 7.5-325MG 1 EACH TAB PO PRN (20:01)
[2019-07-20 20:07] LABS: Glucose,Whole Blood 230 mg/dL (75-99)
[2019-07-21] MEDS: methylPREDNISolone SOD SUCCI 125 MG/2 ML VIAL IV SCH ×2 (05:11→11:50)
[2019-07-21 06:56] LABS: Glucose,Whole Blood 147 mg/dL (75-99)
[2019-07-21] MEDS: PANTOPRAZOLE 40 MG TABLET PO SCH (07:35)
[2019-07-21] MEDS: LORATADINE 10 MG TAB PO SCH (07:35)
[2019-07-21] MEDS: AZITHROMYCIN 500 MG TAB PO SCH (07:35)
[2019-07-21] MEDS: INSULIN ASPART (NovoLOG) 100 UNIT/ML VIAL SQ SCH ×2 (07:36→11:48)
[2019-07-21] MEDS: NICOTINE 14MG/24HR PATCH TRANSDERM SCH (07:36)
[2019-07-21] MEDS: HEPARIN SODIUM,PORCINE 5,000 UNIT/ML 1 ML VIAL SQ SCH (07:36)
[2019-07-21 07:49] VITALS: BP 130/80; RESP 12; TEMP 98.2
[2019-07-21] MEDS: FORMOTEROL FUMARATE 20 MCG/2 ML NEBU INHALATION SCH (08:11)
[2019-07-21] MEDS: BUDESONIDE 1 MG/2 ML NEBU INHALATION SCH (08:11)
[2019-07-21] MEDS: IPRATROPIUM-ALBUTEROL 3 ML NEB INHALATION SCH ×2 (08:11→11:25)
[2019-07-21 08:36] LABS: Basophils % (A) 0 %; Eosinophils % (A) 0 %; HCT 42.5 % (34.0-46.0); HGB 13.7 gm/dL (11.4-16.0); Lymphocytes # (A) 0.5 k/uL (1.0-4.8); Lymphocytes % (A) 4 %; MCH 32.1 pg (25.0-35.0); MCHC 32.2 g/dL (31.0-37.0); MCV 99.7 fL (80.0-100.0); Mean Platelet Volume 8.1; Monocytes # (A) 0.4 k/uL (0-1.0); Monocytes % (A) 3 %; Neutrophils # (A) 13.3 k/uL (1.3-7.7); Neutrophils % (A) 93 %; Platelet Count 294 k/uL (150-450); RBC 4.26 m/uL (3.80-5.40); RDW 12.7 % (11.5-15.5); WBC 14.3 k/uL (3.8-10.6)
[2019-07-21 08:42] LABS: African American GFR (CKD) >90 (>60 ml/min/1.73 sqM); Anion Gap 6 mmol/L; Blood Urea Nitrogen 14 mg/dL (7-17); Calcium 8.6 mg/dL (8.4-10.2); Carbon Dioxide 29 mmol/L (22-30); Chloride 101 mmol/L (98-107); Glucose 229 mg/dL (74-99); Non-African American GFR(CKD) >90 (>60 ml/min/1.73 sqM); Potassium 4.7 mmol/L (3.5-5.1); Sodium 136 mmol/L (137-145)
[2019-07-21 11:39] VITALS: PULSE 78
[2019-07-21 11:47] LABS: Glucose,Whole Blood 104 mg/dL (75-99)
--- NOTE | 2019-07-22 08:38 | P.DS ---
Providers Date of admission: 07/17/19 23:57 Expected date of discharge: 07/22/19 Attending physician: Victor Manuel Dsouza Consults: 07/17/19 23:55 Consult Physician Routine Consulting Provider: Allen Bhakta Consult Reason/Comments: COPD patient Do you want consulting provider notified?: Yes Primary care physician: Jimmy Lopez [facility] Course: Final diagnosis Chronic obstructive pulmonary disease acute exacerbation with acute probably an tracheobronchitis with acute hypoxic respiratory failure, status post BiPAP, present on admission Increased WBC History of continued ongoing nicotine dependence Decreased TSH and decreased T4, possible sick euthyroid syndrome Elevated random blood sugars, possibly secondary to steroids Hyponatremia, mild, present on admission History of anxiety No code, no CPR, no vent Discharge disposition Patient is being discharged in a stable condition with guarded prognosis to home and will follow-up with Dr. Marquez in the outpatient setting upon discharge. Patient will also follow-up with pulmonary in the outpatient setting in 1-2 weeks. She will continue on a short course of oral antibiotics in the form of Zithromax to complete the course for the next 4 days along with a prednisone taper. Total time taken is 35 minutes. History of present illness This is a 49-year-old male who was recently admitted with COPD exacerbation as well as acute probably an tracheobronchitis and was being closely monitored. Pulmonary was following. Influenza testing was negative during hospitalization. Patient was maintained on bronchodilators along with IV steroids and oral antibiotics. She will continue with bronchodilators along with prednisone taper and oral antibiotics in the form of Zithromax for the next 4 days to complete the course. Patient was maintained on the BiPAP for a short period upon admission and then was transitioned oxygen via nasal cannula. During hospitalization patient slowly improved and a home O2 eval was done but she did not qualify for as she maintained oxygen saturations of 93% with activity. Discussed with the patient at length about following up with pulmonary in the outpatient setting for further testing. Also discussed with the patient about refraining from any tobacco use. Patient verbalized understanding. Currently patient denies any chest pain, worsening shortness of breath, or palpitations. Patient is afebrile. Patient denies any nausea or vomiting and is tolerating diet. Patient's condition is stable for discharge today. On exam vital signs are stable. Temp is 98.2F, pulse is 90, respirations are 12, blood pressure is 130/80, oxygen saturation is 95% on room air. Cardio S1, S2 are present. Respiratory system shows diminished breath sounds at the bases with a few scattered rhonchi with some mild wheezing noted on expiration. Abdomen is soft and nontender. Nervous system shows no focal deficits. Please refer to medication reconciliation sheet for a list of medications. Patient Condition at Discharge: Stable Plan - Discharge Summary Discharge Rx Participant: No New Discharge Prescriptions: New predniSONE 10 mg PO DIRECTED #30 tab Budesonide [Pulmicort] 1 mg INHALATION RT-BID 30 Days #30 ml Azithromycin [Zithromax] 500 mg PO DAILY 4 Days #4 tab Continue HYDROcodone/APAP 7.5-325MG [[place] 7.5-325] 1 tab PO BID PRN PRN Reason: Pain Albuterol Nebulized [Ventolin Nebulized] 2.5 mg INHALATION RT-QID PRN PRN Reason: Shortness Of Breath Tiotropium 18 Mcg/Puff [Spiriva] 1 cap INHALATION RT-DAILY Cetirizine HCl [Zyrtec] 10 mg PO DAILY Albuterol Inhaler [Ventolin Hfa Inhaler] 2 puff INHALATION RT-Q6H PRN PRN Reason: Shortness Of Breath Discharge Medication List Albuterol Inhaler [Ventolin Hfa Inhaler] 2 puff INHALATION RT-Q6H PRN 07/18/19 [History] Albuterol Nebulized [Ventolin Nebulized] 2.5 mg INHALATION RT-QID PRN 07/18/19 [History] Cetirizine HCl [Zyrtec] 10 mg PO DAILY 07/18/19 [History] HYDROcodone/APAP 7.5-325MG [[place] 7.5-325] 1 tab PO BID PRN 07/18/19 [History] Tiotropium 18 Mcg/Puff [Spiriva] 1 cap INHALATION RT-DAILY 07/18/19 [History] Azithromycin [Zithromax] 500 mg PO DAILY 4 Days #4 tab 07/21/19 [Rx] Budesonide [Pulmicort] 1 mg INHALATION RT-BID 30 Days #30 ml 07/21/19 [Rx] predniSONE 10 mg PO DIRECTED #30 tab 07/21/19 [Rx] Follow up Appointment(s)/Referral(s): Luisana Marquez MD [Primary Care Provider] - 07/27/19 10:30 am Gerald De Leon DO [Doctor of Osteopathic Medicine] - 2 Weeks Patient Instructions/Handouts: COPD (Chronic Obstructive Pulmonary Disease) (DC) Activity/Diet/Wound Care/Special Instructions: Activity Limited until follow-up Continue with current diet Continue with antibiotics until finished Continue prednisone taper Follow-up with primary care provider upon discharge Follow-up with pulmonary in the outpatient setting in 1-2 weeks Discharge Disposition: HOME SELF-CARE
== END 2019-07-21 13:39 | disposition home or self-care (01) | DRG 190 ==
LOC: EC 21:12 → 6NMEDSUR 23:57 → 4SSUR 07-18 05:45
PROVIDERS: ADMIT Hospitalist; ATTEND Hospitalist
PROC: 5A09457 Assistance with Respiratory Ventilation, 24-96 Consecutive Hours, Continuous Positive Airway Pressure (ICD-10-PCS; principal; 2019-07-17)
DX: J44.1 Chronic obstructive pulmonary disease with (acute) exacerbation (principal); J96.01 Acute respiratory failure with hypoxia; E87.1 Hypo-osmolality and hyponatremia; J44.0 Chronic obstructive pulmonary disease with (acute) lower respiratory infection; F41.9 Anxiety disorder, unspecified; F17.200 Nicotine dependence, unspecified, uncomplicated; J20.9 Acute bronchitis, unspecified; Z66 Do not resuscitate; E66.9 Obesity, unspecified; G89.4 Chronic pain syndrome; F15.10 Other stimulant abuse, uncomplicated; F11.10 Opioid abuse, uncomplicated; E07.81 Sick-euthyroid syndrome; R73.9 Hyperglycemia, unspecified; D72.829 Elevated white blood cell count, unspecified; Z68.31 Body mass index [BMI] 31.0-31.9, adult; Z79.899 Other long term (current) drug therapy; Z88.5 Allergy status to narcotic agent; Z88.7 Allergy status to serum and vaccine; Z91.048 Other nonmedicinal substance allergy status; Z71.6 Tobacco abuse counseling; Z98.51 Tubal ligation status
CPT/HCPCS: 36415; 71045; 80048; 80053; 80306; 81001; 83605; 83735; 83880; 84439; 84443; 84484; 85025; 85379; 85610; 85730; 87502; 93005; 94640; 94660; 94760; 96374; 99285

== ENCOUNTER 2021-12-29 15:02 | Inpatient (IN) | payer MEDICAID, OTHER ==
[2021-12-29] MEDS ORDERED: SODIUM CHLORIDE 0.9% 500 ML 500 ML IV STA (16:08)
[2021-12-29] MEDS ORDERED: LORazepam 1 MG TAB PO STA (16:09)
[2021-12-29 16:48] LABS: African American GFR (CKD) 69 (>60 ml/min/1.73 sqM); Alcohol <10 mg/dL; Anion Gap 6 mmol/L; Blood Urea Nitrogen 17 mg/dL (7-17); Calcium 9.4 mg/dL (8.4-10.2); Carbon Dioxide 27 mmol/L (22-30); Chloride 106 mmol/L (98-107); Glucose 101 mg/dL (74-99); Non-African American GFR(CKD) 60 (>60 ml/min/1.73 sqM); Potassium 4.3 mmol/L (3.5-5.1); Sodium 139 mmol/L (137-145)
[2021-12-29 17:00] LABS: Basophils # (A) 0.1 k/uL (0-0.2); Basophils % (A) 1 %; Eosinophils # (A) 0.2 k/uL (0-0.7); Eosinophils % (A) 1 %; HCT 47.4 % (34.0-46.0); HGB 15.7 gm/dL (11.4-16.0); Lymphocytes # (A) 2.5 k/uL (1.0-4.8); Lymphocytes % (A) 21 %; MCH 31.5 pg (25.0-35.0); MCHC 33.1 g/dL (31.0-37.0); MCV 95.1 fL (80.0-100.0); Mean Platelet Volume 7.8; Monocytes # (A) 0.8 k/uL (0-1.0); Monocytes % (A) 7 %; Neutrophils # (A) 8.1 k/uL (1.3-7.7); Neutrophils % (A) 69 %; Platelet Count 357 k/uL (150-450); RBC 4.99 m/uL (3.80-5.40); RDW 13.3 % (11.5-15.5); WBC 11.8 k/uL (3.8-10.6)
[2021-12-29 17:20] LABS: Amphetamine Screen,Urine Not Detected (NotDetected); Barbiturate Screen,Urine Not Detected (NotDetected); Benzodiazepines Screen,Urine Not Detected (NotDetected); Cocaine Screen,Urine Not Detected (NotDetected); Methadone Screen, Urine Not Detected (NotDetected); Opiate Screen,Urine Not Detected (NotDetected); Oxycodone Screen, Urine Not Detected (NotDetected); Phencyclidine Screen,Urine Not Detected (NotDetected); Tricyclic Antidepressant,Urine Not Detected (NotDetected); Urn Cannabinoid Scrn Not Detected (NotDetected)
--- NOTE | 2021-12-29 18:41 | ED ---
General Adult HPI - General Chief complaint: Psychiatric Symptoms Stated complaint: Mental health eval Time Seen by Provider: 12/29/21 15:22 Source: patient, RN notes reviewed, old records reviewed Mode of arrival: ambulatory Limitations: no limitations - History of Present Illness Initial comments: Patient is a 51-year-old female with past medical history remarkable for depression, anxiety, presents with her sister over concern for suicidal ideations as well as worsening depression. She is primarily in the room. Is under stressors lately. Was originally supposed to start a outpatient medication on Thursday but did not receive her prescription. She does have a history of COPD but no acute complaints at this time. Denies suicidal attempts, plans. Denies visual or auditory hallucinations. Denies homicidal ideations, attempts, plans. Has no other acute complaints at this time. Presents for further evaluation at this time. - Related Data Home Medications Medication Instructions Recorded Confirmed Albuterol Inhaler [Ventolin Hfa 2 puff INHALATION RT-Q4H PRN 07/18/19 12/29/21 Inhaler] Albuterol Nebulized [Ventolin 2.5 mg INHALATION RT-QID PRN 07/18/19 12/29/21 Nebulized] Budesonide-Formot 160-4.5 Mcg 2 puff INHALATION RT-BID 12/29/21 12/29/21 [Symbicort 160-4.5 Mcg Inhaler] Famotidine [Pepcid] 20 mg PO BID 12/29/21 12/29/21 Ipratropium-Albuterol Nebulize 3 ml INHALATION RT-QID PRN 12/29/21 12/29/21 [Duoneb 0.5 mg-3 mg/3 ml Soln] Montelukast [Singulair] 10 mg PO DAILY 12/29/21 12/29/21 lisinopriL [Zestril] 10 mg PO DAILY 12/29/21 12/29/21 Allergies Allergy/AdvReac Type Severity Reaction Status Date / Time acetaminophen [From Lynx] Allergy Anaphylaxis Verified 12/29/21 21:18 adhesive tape Allergy Anaphylaxis Verified 12/29/21 21:18 fluticasone furoate Allergy Anaphylaxis Verified 12/29/21 21:18 [From Trelegy Ellipta] hydrocodone [From Lynx] Allergy Anaphylaxis Verified 12/29/21 21:18 influenza virus vaccine, Allergy Unknown Verified 12/29/21 21:18 specific tetanus immune globulin Allergy Unknown Verified 12/29/21 21:18 tramadol Allergy Anaphylaxis Verified 12/29/21 21:18 umeclidinium Allergy Anaphylaxis Verified 12/29/21 21:18 [From Trelegy Ellipta] vilanterol Allergy Anaphylaxis Verified 12/29/21 21:18 [From Trelegy Ellipta] Review of Systems ROS Statement: Those systems with pertinent positive or pertinent negative responses have been documented in the HPI. Review of Systems: CONST: Denies fever EYES: Denies blurry vision ENT: Denies nasal congestion C/V: Denies Chest pain RESP: Denies shortness of breath GI: Denies abdominal pain : Denies dysuria SKIN: Denies rash. MSK: Denies joint pain. NEURO: Denies headache PSYCH: Denies homicidal ideations/plans/attempts. Denies visual or auditory h allucinations. She endorses suicidal ideations. Denies plans or attempts. ROS Other: All systems not noted in ROS Statement are negative. Past Medical History Past Medical History: No Reported History History of Any Multi-Drug Resistant Organisms: None Reported Past Surgical History: Tubal Ligation Past Anesthesia/Blood Transfusion Reactions: No Reported Reaction Past Psychological History: Anxiety Smoking Status: Current every day smoker Past Alcohol Use History: Occasional Past Drug Use History: None Reported - Past Family History Mother History Unknown: Yes General Exam - General Exam Comments Initial Comments: General: Appears in no acute distress. HEAD: Normal with no signs of head trauma. EYES: PERRLA, EOMI, conjunctiva normal, no discharge. 3 mm and equal bilaterally. ENT: Hearing grossly intact, normal oropharynx. RESPIRATORY: Clear breath sounds bilaterally. No wheezes, rales, or rhonchi. C/V: Regular rate and rhythm. S1 and S2 auscultated, no edema, peripheral pulses 2+ and intact throughout ABD: Abd is soft, nontender, nondistended EXT: Normal range of motion, no obvious deformity SKIN: No rashes or lesions observed on exposed skin. NEURO: Alert and oriented 4. No focal deficits. Limitations: no limitations Course Vital Signs 12/29/21 15:17 Temperature 98.2 F Pulse Rate 84 Respiratory 16 Rate Blood Pressure 166/100 O2 Sat by Pulse 97 Oximetry Medical Decision Making - Medical Decision Making Based on the patient's presentation and physical exam, I do believe she requires psychiatric evaluation. She was placed in green scrubs. Suicide precautions and sitter order were placed. We'll obtain screening EKG as well as laboratory studies. She'll be given a dose of Ativan. She was in agreement this plan. EKG showed no signs of acute ischemia. Laboratory studies were remarkable for a slight leukocytosis of 11.8 which is likely reactive. The remainder the labs are unremarkable including an alcohol level that is negative. Vital signs remained within normal limits. I updated the patient. She is medically cleared for evaluation at this time. Disposition is pending psychiatric evaluation.EPS evaluated the patient. De termined she meets inpatient criteria. Patient be admitted in stable condition. - Lab Data Result diagrams: 12/29/21 16:22 12/29/21 16:22 Lab Results 12/29/21 12/29/21 12/29/21 Range/Units 16:22 16:22 16:22 WBC 11.8 H (3.8-10.6) k/uL RBC 4.99 (3.80-5.40) m/uL Hgb 15.7 (11.4-16.0) gm/dL Hct 47.4 H (34.0-46.0) % MCV 95.1 (80.0-100.0) fL MCH 31.5 (25.0-35.0) pg MCHC 33.1 (31.0-37.0) g/dL RDW 13.3 (11.5-15.5) % Plt Count 357 (150-450) k/uL MPV 7.8 Neutrophils % 69 % Lymphocytes % 21 % Monocytes % 7 % Eosinophils % 1 % Basophils % 1 % Neutrophils # 8.1 H (1.3-7.7) k/uL Lymphocytes # 2.5 (1.0-4.8) k/uL Monocytes # 0.8 (0-1.0) k/uL Eosinophils # 0.2 (0-0.7) k/uL Basophils # 0.1 (0-0.2) k/uL Sodium 139 (137-145) mmol/L Potassium 4.3 (3.5-5.1) mmol/L Chloride 106 (98-107) mmol/L Carbon Dioxide 27 (22-30) mmol/L Anion Gap 6 mmol/L BUN 17 (7-17) mg/dL Creatinine 1.07 H (0.52-1.04) mg/dL Est GFR (CKD-EPI)AfAm 69 (>60 ml/min/1.73 sqM) Est GFR (CKD-EPI)NonAf 60 (>60 ml/min/1.73 sqM) Glucose 101 H (74-99) mg/dL Calcium 9.4 (8.4-10.2) mg/dL Urine Opiates Screen Not Detected (NotDetected) Ur Oxycodone Screen Not Detected (NotDetected) Urine Methadone Screen Not Detected (NotDetected) Ur Propoxyphene Screen Not Detected (NotDetected) Ur Barbiturates Screen Not Detected (NotDetected) U Tricyclic Antidepress Not Detected (NotDetected) Ur Phencyclidine Scrn Not Detected (NotDetected) Ur Amphetamines Screen Not Detected (NotDetected) U Methamphetamines Scrn Not Detected (NotDetected) U Benzodiazepines Scrn Not Detected (NotDetected) Urine Cocaine Screen Not Detected (NotDetected) U Marijuana (THC) Screen Not Detected (NotDetected) Serum Alcohol <10 mg/dL - EKG Data -: EKG Interpreted by Me EKG Comments: 12-lead Electrocardiogram Interpretation Note EKG was reviewed and interpreted by myself. 12-lead ECG performed at 1637 is interpreted by me as revealing normal sinus rhythm at a rate of 83 beats per minute. [place] is normal. HI interval is 151 ms, QRS duration is 98 ms, QTc is 429 ms.. There were no ST or T wave abnormalities to suggest myocardial ischemia or injury. R wave progression across the precordium was satisfactory. There is a good account of baseline artifact that makes interpretation of the precordial leads difficult, however is seen in lead 2 throughout the EKG, she is in the normal sinus rhythm. By my interpretation this EKG is non-diagnostic for acute ischemia. Disposition Clinical Impression: Encounter for psychiatric assessment, Suicidal ideation Disposition: TRANSFER TO PSYCH HOSP/UNIT Condition: Stable Referrals: [facility] [Primary Care Provider] - 1-2 days
[2021-12-29] MEDS ORDERED: MAGNESIUM HYDROXIDE 2,400 MG/10 ML CUP PO PRN (23:53)
[2021-12-29] MEDS ORDERED: MAG HYDROX/AL HYDROX/SIMETH 30 ML CUP PO PRN (23:53)
[2021-12-30] MEDS ORDERED: LORazepam 1 MG TAB PO PRN (00:03)
[2021-12-30] MEDS ORDERED: LORazepam 1 MG/0.5 ML VIAL IM PRN (00:03)
[2021-12-30] MEDS ORDERED: HALOPERIDOL LACTATE 5 MG/ML 1 ML VIAL IM PRN (00:04)
[2021-12-30] MEDS ORDERED: haloperidoL 5 MG TAB PO PRN (00:04)
[2021-12-30] MEDS ORDERED: NICOTINE 14MG/24HR PATCH TRANSDERM SCH (09:00)
[2021-12-30] MEDS: FAMOTIDINE 20 MG TAB PO SCH ×2 (09:03→21:49)
[2021-12-30] MEDS: lisinopriL 10 MG TAB PO SCH (09:03)
[2021-12-30] MEDS: ALBUTEROL HFA INHALER INHALATION PRN ×3 (09:03→20:21)
[2021-12-30] MEDS: MONTELUKAST 10 MG TAB PO SCH (09:03)
[2021-12-30] MEDS: SYMBICORT 160-4.5 MCG INHALER INHALATION SCH ×2 (12:09→20:21)
--- NOTE | 2021-12-30 14:08 | P.HP ---
Psychiatric H&P - . H&P Date: 12/30/21 History & Physical: Allergies Allergy/AdvReac Type Severity Reaction Status Date / Time acetaminophen From [place] Allergy Anaphylaxis Verified 12/29/21 21:18 adhesive tape Allergy Anaphylaxis Verified 12/29/21 21:18 fluticasone furoate Allergy Anaphylaxis Verified 12/29/21 21:18 From Trelegy Ellipta hydrocodone From [place] Allergy Anaphylaxis Verified 12/29/21 21:18 influenza virus vaccine, Allergy Unknown Verified 12/29/21 21:18 specific tetanus immune globulin Allergy Unknown Verified 12/29/21 21:18 tramadol Allergy Anaphylaxis Verified 12/29/21 21:18 umeclidinium Allergy Anaphylaxis Verified 12/29/21 21:18 From Trelegy Ellipta vilanterol Allergy Anaphylaxis Verified 12/29/21 21:18 From Trelegy Ellipta Vital Signs Temp 98.2 F 12/30/21 01:20 Pulse 79 12/30/21 01:20 Resp 20 12/30/21 01:20 BP 119/74 12/30/21 01:20 Pulse Ox 97 12/29/21 15:17 FiO2 Intake & Output 12/29/21 12/30/21 12/30/21 18:59 06:59 18:59 Weight 118.841 kg Laboratory Last Values WBC 11.8 k/uL (3.8-10.6) H 12/29/21 16: RBC 4.99 m/uL (3.80-5.40) 12/29/21 16:22 Hgb 15.7 gm/dL (11.4-16.0) 12/29/21 16:22 Hct 47.4 % (34.0-46.0) H 12/29/21 16:22 MCV 95.1 fL (80.0-100.0) 12/29/21 16:22 MCH 31.5 pg (25.0-35.0) 12/29/21 16:22 MCHC 33.1 g/dL (31.0-37.0) 12/29/21 16:22 RDW 13.3 % (11.5-15.5) 12/29/21 16:22 Plt Count 357 k/uL (150-450) 12/29/21 16:22 MPV 7.8 12/29/21 16:22 Neutrophils % 69 % 12/29/21 16:22 Lymphocytes % 21 % 12/29/21 16:22 Monocytes % 7 % 12/29/21 16:22 Eosinophils % 1 % 12/29/21 16:22 Basophils % 1 % 12/29/21 16:22 Neutrophils # 8.1 k/uL (1.3-7.7) H 12/29/21 16:22 Lymphocytes # 2.5 k/uL (1.0-4.8) 12/29/21 16:22 Monocytes # 0.8 k/uL (0-1.0) 12/29/21 16:22 Eosinophils # 0.2 k/uL (0-0.7) 12/29/21 16:22 Basophils # 0.1 k/uL (0-0.2) 12/29/21 16:22 Sodium 139 mmol/L (137-145) 12/29/21 16:22 Potassium 4.3 mmol/L (3.5-5.1) 12/29/21 16:22 Chloride 106 mmol/L (98-107) 12/29/21 16:22 Carbon Dioxide 27 mmol/L (22-30) 12/29/21 16:22 Anion Gap 6 mmol/L 12/29/21 16:22 BUN 17 mg/dL (7-17) 12/29/21 16:22 Creatinine 1.07 mg/dL (0.52-1.04) H 12/29/21 16:22 Est GFR (CKD-EPI)AfAm 69 (>60 ml/min/1.73 sqM) 12/29/21 16:22 Est GFR (CKD-EPI)NonAf 60 (>60 ml/min/1.73 sqM) 12/29/21 16:22 Glucose 101 mg/dL (74-99) H 12/29/21 16:22 Calcium 9.4 mg/dL (8.4-10.2) 12/29/21 16:22 TSH 2.090 mIU/L (0.465-4.680) 12/29/21 16:22 Urine Opiates Screen Not Detected (NotDetected) 12/29/21 16:22 Ur Oxycodone Screen Not Detected (NotDetected) 12/29/21 16:22 Urine Methadone Screen Not Detected (NotDetected) 12/29/21 16:22 Ur Propoxyphene Screen Not Detected (NotDetected) 12/29/21 16:22 Ur Barbiturates Screen Not Detected (NotDetected) 12/29/21 16:22 U Tricyclic Antidepress Not Detected (NotDetected) 12/29/21 16:22 Ur Phencyclidine Scrn Not Detected (NotDetected) 12/29/21 16:22 Ur Amphetamines Screen Not Detected (NotDetected) 12/29/21 16:22 U Methamphetamines Scrn Not Detected (NotDetected) 12/29/21 16:22 U Benzodiazepines Scrn Not Detected (NotDetected) 12/29/21 16:22 Urine Cocaine Screen Not Detected (NotDetected) 12/29/21 16:22 U Marijuana (THC) Screen Not Detected (NotDetected) 12/29/21 16:22 Serum Alcohol <10 mg/dL 12/29/21 16:22 Coronavirus (PCR) Not Detected (Not Detectd) 12/29/21 22:40 12/30/21 13:59 IDENTIFYING DATA: Patient is a 51-year-old female, currently lives with her boyfriend in a house, has 2 kids. Unemployed. HPI: Patient presented to the hospital yesterday and was complaining of depression and anxiety and suicidal ideations. Patient was admitted voluntarily to the mental health unit. Patient does not have a psychiatric history and no previous admissions. She was seen today and agreeable to speak to music writer. Patient was tearful, appeared to be in significant distress. She states that "I don't know what's going on" and was crying. She states that she "ate a sandwich" and claims that my "brain got scrambled". She states that she did go to [facility] however has not received any medications. She states that she has been hearing voices for the past month or so. She claims that the voices are "messed up" or telling her negative things. She also claims that she has been seeing "monsters on the wall". She also describes other visual hallucinations and illusions. She states that she has been crying a lot and feeling irritable. She states that she does not know if her daughter or grandson or not. She appeared to be in significant distress. She states that she is feeling depressed and has been crying. She states that she didn't know what to do about herself and wanted to "jump off a celestino yesterday". She clearly is today is 12/25/2021, now she is in [facility]. She also knows her full name and age. She states that her memory is "very bad" however was able to recall 3 words after 5 minutes with multiple guesses. She also appears to have fair attention span and could spell "world" backwards. She states that her sleep has been poor, appetite is also been fairly poor.. Patient denies any suicidal or homicidal ideations intent or plan. Patient denies any flight of ideas racing thoughts and increased in goal directed behavior. Patient admits to using marijuana occasionally. PAST PSYCHIATRIC HISTORY: Patient states that she has no history of psychiatric illness. Patient denies being on any psychiatric medications. Patient denies any previous psychiatric hospitalizations. She claims that she follows up with [facility] however has not received medications from them. Patient denies any history of suicide attempts in the past. PMH:denies ALLERGIES: as per EMR CHEMICAL DEPENDENCY HISTORY: as per HPI FAMILY PSYCHIATRIC/SUBSTANCE USE HISTORY: denies SOCIAL HISTORY: Patient was born and raised in [place]. She states that she completed up to 11th grade in school. 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 She states that she does not have a legal history. She has 2 kids, currently lives with her boyfriend in the home. MENTAL STATUS EXAM: General Appearance: Patient appears to be obese, wearing glasses, stated age is alert, in significant distress, attempts to cooperate. Patient appears to have poor hygiene and grooming. Behavior: Patient is seated without any agitated behavior. Tearful. In distress. Speech: Patient's speech is fluent and nonpressured. [place]. Mood/Affect: Patient reports their mood is depressed and crying a lot, affect is congruent Suicidality/Homicidality: Patient denies having any homicidal ideation intent or plan. Denies any suicidal ideations intent or plan Perceptions: Patient denies any visual hallucinations and denies any auditory hallucinations Though content/process: There is no evidence of any delusional thought content and thought process is linear and goal-directed. Focused on her stressors. [place]. Memory and concentration: AOX3, grossly intact for the purposes of this session. Can spell "WORLD" backwards. Can identify multiple objects in the room. 3/3 memory recall after 5 minutes. Judgment and insight: poor STRENGTHS/WEAKNESSES: strength is that patient is resilient. Weakness is that patient has poor judgment and is impulsive INTELLECT: average IMPRESSIONS: Psychosis unspecified, rule out secondary to organic cause versus general medical condition Major depressive disorder Cannabis use disorder mild PLAN: -Patient is admitted under voluntary status to MHU for stabilization of psychiatric symptoms and safety. Patient has signed adult voluntary form and medication consent and is placed in patient's chart. -Medications : Will start patient on Seroquel 50 mg daily at bedtime for mood stabilization/psychosis, Zoloft 25 mg daily for mood/anxiety. -Ativan and Haldol PRN for agitation/aggression -ordered CT head wo contrast due to late onset of symptoms, visual hallucinations and claims of memory impairment. -Patient was counselled on substance abuse and desired to cut back on use -Patient was informed of the risks, benefits and side effects of the medication and patient verbally consented to taking the medications. Patient signed med consent form and was placed in chart. -Internal Medicine consult to perform medical evaluation and physical. -NRT - not needed as patient does not smoke -SW on board for discharge planning. Encourage patient to participate in groups to work on coping skills. 12/30/21 14:01
--- NOTE | 2021-12-30 15:01 | P.HPMEDMHU ---
History of Present Illness Chief Complaint: Suicidal ideation Female with a past medical history significant for COPD, essential hypertension that presents a hospital secondary to suicidal ideation. During my examination patient denies any shortness of breath, chest pain or palpitations. She is being admitted to [facility] for suicidal ideation with precautions. Patient's vital signs are stable patient is currently saturating above 90% on room air. Leukocytosis 11.8, hemoglobin and hematocrit within normal limits including platelet count. BMP reviewed creatinine slightly elevated at 1.07, TSH within normal limits and electrolytes within normal limits. Past Medical History Past Medical History: No Reported History History of Any Multi-Drug Resistant Organisms: None Reported Past Surgical History: Tubal Ligation Past Anesthesia/Blood Transfusion Reactions: No Reported Reaction Past Psychological History: Anxiety Smoking Status: Current every day smoker Past Alcohol Use History: Occasional Past Drug Use History: None Reported - Past Family History Mother History Unknown: Yes Medications and Allergies Home Medications Medication Instructions Recorded Confirmed Type Albuterol Inhaler [Ventolin Hfa 2 puff INHALATION RT-Q4H PRN 07/18/19 12/29/21 History Inhaler] Albuterol Nebulized [Ventolin 2.5 mg INHALATION RT-QID PRN 07/18/19 12/29/21 History Nebulized] Budesonide-Formot 160-4.5 Mcg 2 puff INHALATION RT-BID 12/29/21 12/29/21 History [Symbicort 160-4.5 Mcg Inhaler] Famotidine [Pepcid] 20 mg PO BID 12/29/21 12/29/21 History Ipratropium-Albuterol Nebulize 3 ml INHALATION RT-QID PRN 12/29/21 12/29/21 History [Duoneb 0.5 mg-3 mg/3 ml Soln] Montelukast [Singulair] 10 mg PO DAILY 12/29/21 12/29/21 History lisinopriL [Zestril] 10 mg PO DAILY 12/29/21 12/29/21 History Allergies Allergy/AdvReac Type Severity Reaction Status Date / Time acetaminophen [From [place]] Allergy Anaphylaxis Verified 12/29/21 21:18 adhesive tape Allergy Anaphylaxis Verified 12/29/21 21:18 fluticasone furoate Allergy Anaphylaxis Verified 12/29/21 21:18 [From [place]] hydrocodone [From [place]] Allergy Anaphylaxis Verified 12/29/21 21:18 influenza virus vaccine, Allergy Unknown Verified 12/29/21 21:18 specific tetanus immune globulin Allergy Unknown Verified 12/29/21 21:18 tramadol Allergy Anaphylaxis Verified 12/29/21 21:18 umeclidinium Allergy Anaphylaxis Verified 12/29/21 21:18 [From Trelegy Ellipta] vilanterol Allergy Anaphylaxis Verified 12/29/21 21:18 [From [place] Ellipta] Physical Exam Vitals: Vital Signs Temp Pulse Pulse Resp BP BP Pulse Ox 12/30/21 01:20 98.2 F 79 20 119/74 12/29/21 15:17 98.2 F 84 16 166/100 97 Intake and Output 12/29/21 12/30/21 12/30/21 22:59 06:59 14:59 Other: Weight 118.841 kg Gen. patient is awake alert oriented 3 Cardio normal S1/S2 Respiratory wheezing present bilaterally Abdomen soft, nontender Extremity no pitting edema noted Psychiatric patient seems slightly depressed and withdrawn Cranial Nerve Examination - Cranial Nerves Cranial Nerve I- Olfactory: Intact Cranial Nerve II- Optic: Intact Cranial Nerve III- Oculomotor: Intact Cranial Nerve IV- Trochlear: Intact Cranial Nerve V- Trigeminal: Intact Cranial Nerve - Abducens: Intact Cranial Nerve VII- Facial: Intact Cranial Nerve VIII- Auditory: Intact Cranial Nerve IX- Glossopharyngeal: Intact Cranial Nerve X- Vagus: Intact Cranial Nerve XI- Accessory: Intact Cranial Nerve XII- Hypoglossal: Intact Results CBC & Chem 7: 12/29/21 16:22 12/29/21 16:22 Labs: Abnormal Lab Results - Last 24 Hours (Table) 12/29/21 12/29/21 Range/Units 16:22 16:22 WBC 11.8 H (3.8-10.6) k/uL Hct 47.4 H (34.0-46.0) % Neutrophils # 8.1 H (1.3-7.7) k/uL Creatinine 1.07 H (0.52-1.04) mg/dL Glucose 101 H (74-99) mg/dL Assessment and Plan Assessment: Assessment: #1 suicidal ideation. #2 COPD exacerbation mild #3 essential hypertension Plan: -Continue management as per behavioral medicine -Recommend starting prednisone 40 mg daily to complete 5 days for COPD exacerbation -Continue with home inhalers. We can also add duo nebs every 6 when necessary for shortness of breath -obtain chest x-ray. please page with results. -If you have any questions please not hesitate to contact us
[2021-12-30] MEDS ORDERED: IPRATROPIUM-ALBUTEROL 3 ML NEB INHALATION PRN (15:02)
[2021-12-30] MEDS: SERTRALINE 25 MG TAB PO SCH (15:13)
--- NOTE | 2021-12-30 16:12 | CT ---
EXAMINATION TYPE: CT brain wo con DATE OF EXAM: 12/30/2021 COMPARISON: None HISTORY: 51-year-old female memory loss, acute psychosis TECHNIQUE: Examination was done in axial plane without intravenous contrast. Coronal and sagittal r econstructions performed. CT DLP: 1033.7 mGycm Automated exposure control for dose reduction was used. FINDINGS: There is no evidence of acute intracranial hemorrhage, acute ischemic changes, mass, mass-effect, or extra-axial fluid collection. There is no effacement of cerebral sulci or basal subarachnoid cister ns. There is no hydrocephalus. There is no midline shift. Grayson-white matter distinction is preserv ed. Incidental empty sella. Paranasal sinuses and mastoid air cells well pneumatized. Orbits and bones are intact. IMPRESSION: No acute intracranial abnormality seen.
[2021-12-30] MEDS: predniSONE 20 MG TAB PO SCH (16:29)
[2021-12-30] MEDS ORDERED: LORazepam 2 MG/ML INJ IM PRN (18:04)
[2021-12-30] MEDS: QUEtiapine 50 MG TAB PO SCH (22:11)
[2021-12-31] MEDS: MONTELUKAST 10 MG TAB PO SCH (09:23)
[2021-12-31] MEDS: lisinopriL 10 MG TAB PO SCH (09:23)
[2021-12-31] MEDS: FAMOTIDINE 20 MG TAB PO SCH ×2 (09:23→20:51)
[2021-12-31] MEDS: SERTRALINE 25 MG TAB PO SCH (09:24)
[2021-12-31] MEDS: predniSONE 20 MG TAB PO SCH (09:24)
[2021-12-31] MEDS: SYMBICORT 160-4.5 MCG INHALER INHALATION SCH ×3 (09:24→20:51)
[2021-12-31] MEDS: ALBUTEROL HFA INHALER INHALATION PRN ×2 (10:30→22:10)
--- NOTE | 2021-12-31 10:39 | P.PN ---
Progress Note - Text Progress Note Date: 12/31/21 Interval History: Patient was seen lying in her bed this morning and was directable and agreeable to speak with financial underwriter in the office. Patient appeared to be somewhat lethargic today. She was less tearful today as well. She continues to mention possibly losing her daughter or her grandson and was mildly tearful however was redirectable and spoke about how she is feeling. She states that she did receive the computed tomography scan yesterday which went well. She claims that she took her Seroquel early yesterday and tolerated it well but fell asleep shortly after. States he was able to sleep throughout the night. She claims that her mood is "the same" and continues to endorse some depression and anxiety. Fair appetite. At this time patient denies any suicidal or homical ideations, intent or plan. Patient denies any auditory, visual hallucinations. Patient denies any side effects from the medications and has been compliant with meds. Mental Status Exam: General Appearance: Patient appears to be obese, wearing glasses, stated age is alert, in less distress, attempts to cooperate. Patient appears to have improving hygiene and grooming. Behavior: Patient is seated without any agitated behavior. less Tearful today Speech: Patient's speech is fluent and nonpressured. [place]. Mood/Affect: Patient reports their mood is depressed, improving mildly, affect is congruent Suicidality/Homicidality: Patient denies having any homicidal ideation intent or plan. Denies any suicidal ideations intent or plan Perceptions: Patient denies any visual hallucinations and denies any auditory hallucinations Though content/process: There is no evidence of any delusional thought content and thought process is linear and goal-directed. [place]. Memory and concentration: AOX3, grossly intact for the purposes of this session. Judgment and insight: poor, improving mildly IMPRESSIONS: Psychosis unspecified, rule out secondary to organic cause versus general medical condition Major depressive disorder Cannabis use disorder mild Plan: -Patient continues to meet criteria for inpatient psychiatric admission for symptom stabilization and safety. Patient has signed adult voluntary form and medication consent and was placed in patient's chart. -Medications: Increase Zoloft to 50 mg daily for mood/anxiety, continue with Seroquel 50 mg daily at bedtime for psychosis/sleep. -When necessary Ativan and Haldol for agitation/aggression. -CT had performed on 12/30 showed no acute changes or significant abnormalities. -NRT - not needed as patient does not smoke -SW on board for discharge planning. Encouraged the patient to participate in milieu.
[2021-12-31] MEDS: QUEtiapine 50 MG TAB PO SCH (20:51)
[2022-01-01] MEDS: predniSONE 20 MG TAB PO SCH (08:52)
[2022-01-01] MEDS: SYMBICORT 160-4.5 MCG INHALER INHALATION SCH ×2 (08:52→20:45)
[2022-01-01] MEDS: ALBUTEROL HFA INHALER INHALATION PRN (08:52)
[2022-01-01] MEDS: FAMOTIDINE 20 MG TAB PO SCH ×2 (08:52→20:45)
[2022-01-01] MEDS: lisinopriL 10 MG TAB PO SCH (08:52)
[2022-01-01 08:53] VITALS: RESP 16
[2022-01-01] MEDS: SERTRALINE 50 MG TAB PO SCH (08:53)
[2022-01-01] MEDS: MONTELUKAST 10 MG TAB PO SCH (08:53)
--- NOTE | 2022-01-01 11:51 | P.PN ---
Progress Note - Text Progress Note Date: 01/01/22 Interval History: Patient was seen lying in her bed this morning and was directable and agreeable to speak with automobile service writer in the office. Patient appears to be more awake today and more appropriately with brighter. She was less labile and tearful today. She claims that she is doing a bit better with her medications however is still stating that she has been hearing negative voices speaking to her. She states that it has been less frequent and less severe but states that this morning she was crying because voices were "telling me horrible things". She states that she is finding good positivity and feedback in groups and listening to other people stories. She has been more visible on the unit now. Less tearful during conversation. States that she slept much better last night with the Seroquel. Fair appetite. At this time patient denies any suicidal or homical ideations, intent or plan. Patient denies any visual hallucinations. Patient denies any side effects from the medications and has been compliant with meds. Mental Status Exam: General Appearance: Patient appears to be obese, wearing glasses, stated age is alert, in less distress, attempts to cooperate. Patient appears to have improving hygiene and grooming. Behavior: Patient is seated without any agitated behavior. Speech: Patient's speech is fluent and nonpressured. [place]. Mood/Affect: Patient reports their mood is improving mildly, affect is congruent Suicidality/Homicidality: Patient denies having any homicidal ideation intent or plan. Denies any suicidal ideations intent or plan Perceptions: Patient denies any visual hallucinations and admits to auditory halluciantions today telling her negative things. Though content/process: There is no evidence of any delusional thought content and thought process is linear and goal-directed. Memory and concentration: AOX3, grossly intact for the purposes of this session. Judgment and insight: poor, improving mildly IMPRESSIONS: Psychosis unspecified, rule out secondary to organic cause versus general medical condition Major depressive disorder Cannabis use disorder mild Plan: -Patient continues to meet criteria for inpatient psychiatric admission for symptom stabilization and safety. Patient has signed adult voluntary form and medication consent and was placed in patient's chart. -Medications: Zoloft 50 mg daily for mood/anxiety, increased Seroquel 75 mg daily at bedtime for psychosis/sleep. -When necessary Ativan and Haldol for agitation/aggression. -CT had performed on 12/30 showed no acute changes or significant abnormalities. -NRT - not needed as patient does not smoke -SW on board for discharge planning. Encouraged the patient to participate in milieu. likely discharge in 1-2 days back home.
[2022-01-01] MEDS: IPRATROPIUM-ALBUTEROL 3 ML NEB INHALATION PRN ×2 (12:57→17:39)
[2022-01-01] MEDS ORDERED: QUEtiapine 25 MG TAB PO SCH (21:00)
[2022-01-02] MEDS: SYMBICORT 160-4.5 MCG INHALER INHALATION SCH ×2 (08:36→20:38)
[2022-01-02] MEDS: predniSONE 20 MG TAB PO SCH (08:37)
[2022-01-02] MEDS: FAMOTIDINE 20 MG TAB PO SCH ×2 (08:37→20:39)
[2022-01-02] MEDS: SERTRALINE 50 MG TAB PO SCH (08:37)
[2022-01-02] MEDS: MONTELUKAST 10 MG TAB PO SCH (08:38)
[2022-01-02] MEDS: lisinopriL 10 MG TAB PO SCH (08:38)
[2022-01-02] MEDS: IPRATROPIUM-ALBUTEROL 3 ML NEB INHALATION PRN (09:18)
--- NOTE | 2022-01-02 10:22 | P.PN ---
Progress Note - Text Progress Note Date: 01/02/22 Interval History: Patient was seen sitting in on group this morning and was directable and agree able to speak with insurance underwriter sales in the office. Patient appears to be more awake today and more interactive with insurance underwriter sales today. She states that she does appreciate most of the staff on the unit however did have a run and in an argument with a staff member which she does not know the name of who was "rude to me" and states that she argued back. She claims that she is trying to remove herself from the situation and deal with it. She states that she is feeling a lot better in terms of her symptoms, claims that her mood has been gradually getting better and denying any anxiety at this time. She states that she is still dealing with the grief and loss of her child and also her grandson. She states that the medications have been helpful for her and have been calming down her voices however states that they are still present at this time. She states that she did not sleep well last night and was agreeable to have her Seroquel increased. He was not tearful today. Fair appetite. At this time patient denies any suicidal or homical ideations, intent or plan. Patient denies any visual hallucinations. Patient denies any side effects from the medications and has been compliant with meds. Mental Status Exam: General Appearance: Patient appears to be obese, wearing glasses, stated age is alert, in less distress, attempts to cooperate. Patient appears to have improving hygiene and grooming. Behavior: Patient is seated without any agitated behavior. More cooperative today. Speech: Patient's speech is fluent and nonpressured. [place]. Mood/Affect: Patient reports their mood is improving mildly, affect is congruent Suicidality/Homicidality: Patient denies having any homicidal ideation intent or plan. Denies any suicidal ideations intent or plan. Perceptions: Patient denies any visual hallucinations and admits to auditory hallucinations which have been improving Though content/process: There is no evidence of any delusional thought content and thought process is linear and goal-directed. Rambles at times. Memory and concentration: AOX3, grossly intact for the purposes of this session. Judgment and insight: improving mildly IMPRESSIONS: Psychosis unspecified Major depressive disorder Cannabis use disorder mild Plan: -Patient continues to meet criteria for inpatient psychiatric admission for symptom stabilization and safety. Patient has signed adult voluntary form and m edication consent and was placed in patient's chart. -Medications: Zoloft 50 mg daily for mood/anxiety, increased Seroquel 100 mg daily at bedtime for psychosis/sleep. -When necessary Ativan and Haldol for agitation/aggression. -CT had performed on 12/30 showed no acute changes or significant abnormalities. -NRT - not needed as patient does not smoke -SW on board for discharge planning. Encouraged the patient to participate in milieu. likely discharge back home tomorrow.
[2022-01-02] MEDS: QUEtiapine 100 MG TAB PO SCH (20:39)
[2022-01-03] MEDS: MONTELUKAST 10 MG TAB PO SCH (08:50)
[2022-01-03] MEDS: lisinopriL 10 MG TAB PO SCH (08:50)
[2022-01-03] MEDS: SERTRALINE 50 MG TAB PO SCH (08:50)
[2022-01-03] MEDS: FAMOTIDINE 20 MG TAB PO SCH ×2 (08:50→20:48)
[2022-01-03] MEDS: predniSONE 20 MG TAB PO SCH (08:50)
[2022-01-03] MEDS: SYMBICORT 160-4.5 MCG INHALER INHALATION SCH ×2 (08:52→20:50)
[2022-01-03] MEDS ORDERED: SERTRALINE 25 MG TAB PO ONE (09:44)
--- NOTE | 2022-01-03 10:24 | P.PN ---
Progress Note - Text Progress Note Date: 01/03/22 Interval History: Patient was seen sitting in on group this morning and was directable and agree able to speak with play writer in the office. Patient appears to be fairly anxious today and was having difficulty breathing. She states that she feels "scared" and continues to be focused on her loss of her kids. She was also endorsing paranoia towards other people today. She claims that she does not feel safe to go home today and started crying during the interview and was becoming anxious and agitated. She was endorse racing thoughts and flight of ideas. She claims that she was able to sleep poorly last night. Fair appetite. At this time patient denies any suicidal or homical ideations, intent or plan. Patient denies any visual hallucinations. She claims that she is now having passive suicidal thoughts, denies any intent or plan. She also states that she is hearing voices again. Patient denies any side effects from the medications and has been compliant with meds. Mental Status Exam: General Appearance: Patient appears to be obese, wearing glasses, stated age is alert, in distress, attempts to cooperate. Tearful. Patient appears to have improving hygiene and grooming. Behavior: Patient is seated without any agitated behavior. Appears to be anxious, irritable. Speech: Patient's speech is fluent and nonpressured. Mood/Affect: Patient reports their mood is anxious, affect is congruent Suicidality/Homicidality: Patient denies having any homicidal ideation intent or plan. Admits to passive suicidal thoughts, no intent or plan. Perceptions: Patient denies any visual hallucinations and admits to auditory hallucinations Though content/process: There is no evidence of any delusional thought content and thought process is linear and goal-directed. Rambles at times. Memory and concentration: AOX3, grossly intact for the purposes of this session. Judgment and insight: improving mildly IMPRESSIONS: Psychosis unspecified Major depressive disorder Cannabis use disorder mild Plan: -Patient continues to meet criteria for inpatient psychiatric admission for symptom stabilization and safety. Patient has signed adult voluntary form and medication consent and was placed in patient's chart. -Medications: increase Zoloft 100 mg daily for mood/anxiety, Seroquel 100 mg daily at bedtime for psychosis/sleep. consider adding buspar over the weekend if patient continues to have elevated anxiety. -When necessary Ativan and Haldol for agitation/aggression. -CT had performed on 12/30 showed no acute changes or significant abnormalities. -NRT - not needed as patient does not smoke -SW on board for discharge planning. Encouraged the patient to participate in milieu. likely discharge next week as patient is not psychiatrically stable at this time.
[2022-01-03] MEDS: QUEtiapine 100 MG TAB PO SCH (20:48)
[2022-01-03] MEDS: IPRATROPIUM-ALBUTEROL 3 ML NEB INHALATION PRN (20:50)
[2022-01-04] MEDS: SYMBICORT 160-4.5 MCG INHALER INHALATION SCH ×2 (07:24→20:26)
[2022-01-04] MEDS: IPRATROPIUM-ALBUTEROL 3 ML NEB INHALATION PRN (07:55)
--- NOTE | 2022-01-04 08:36 | P.PN ---
Subjective Progress Note Date: 01/04/22 Principal diagnosis: Major depression recurrent with psychosis Subjective: The patient talked about how she suffers from, "me me Itis" she says that she spent 3 years in a darkened room and missed out on being involved with her family. She has had major losses in her life including the of her daughter and grandson. She says that she is committed to getting her life back together that she is going to go to denominational and that she has family that she can go to denominational with and she is going to get into counseling and stay with family not by herself. She said that her problem was that she been listening to voices that she calls me myself and I and the problem was that the me voice in the myself voice has shut up in the eye voice told her to kill herself. I tried to clarify she does not seem to hear these voices out in the room it's more like ruminative thoughts. She has been sleeping better with the Seroquel and she alluded to having gotten involved with dangerous people and said something about her daughter being in witness protection. It sounded slightly paranoid although I don't have enough details to assess. Objective: The patient was alert and walks fairly well she came readily good eye contact. Emotions are somewhat labile. When I told her that she was on good medication but that some of that will take 2-3 weeks to really work she was almost too positive saying, "then I won't need it because 2 weeks from now I'll be fine. Assessment patient is still labile with mild paranoia but she is alert tolerating the medications Plan no change at this time Objective - Vital Signs Vital signs: Vital Signs Temp 97.2 F L 01/04/22 06:08 Pulse 80 01/04/22 08:06 Resp 16 01/04/22 06:08 BP 116/70 01/04/22 06:08 Pulse Ox 97 01/01/22 08:51 FiO2 - Labs CBC & Chem 7: 12/29/21 16:22 12/29/21 16:22
[2022-01-04] MEDS: FAMOTIDINE 20 MG TAB PO SCH ×2 (08:54→20:28)
[2022-01-04] MEDS: SERTRALINE 100 MG TAB PO SCH (08:54)
[2022-01-04] MEDS: predniSONE 20 MG TAB PO SCH (08:54)
[2022-01-04] MEDS: lisinopriL 10 MG TAB PO SCH (08:54)
[2022-01-04] MEDS: MONTELUKAST 10 MG TAB PO SCH (08:54)
[2022-01-04] MEDS ORDERED: SERTRALINE 50 MG TAB PO SCH (09:00)
[2022-01-04] MEDS: ALBUTEROL INHALER 60 PUFF/8 GM INHALER (MHU) INHALATION PRN (15:25)
[2022-01-04] MEDS: QUEtiapine 100 MG TAB PO SCH (20:27)
[2022-01-05] MEDS: SERTRALINE 100 MG TAB PO SCH (08:43)
[2022-01-05] MEDS: FAMOTIDINE 20 MG TAB PO SCH ×2 (08:43→20:33)
[2022-01-05] MEDS: lisinopriL 10 MG TAB PO SCH (08:43)
[2022-01-05] MEDS: MONTELUKAST 10 MG TAB PO SCH (08:43)
[2022-01-05] MEDS: SYMBICORT 160-4.5 MCG INHALER INHALATION SCH ×2 (08:45→20:34)
[2022-01-05] MEDS: ALBUTEROL INHALER 60 PUFF/8 GM INHALER (MHU) INHALATION PRN ×3 (08:46→20:33)
[2022-01-05] MEDS ORDERED: QUEtiapine 200 MG TAB PO SCH (21:00)
[2022-01-06 06:54] VITALS: BP 116/59; TEMP 97.3
[2022-01-06] MEDS: SYMBICORT 160-4.5 MCG INHALER INHALATION SCH (07:46)
[2022-01-06] MEDS: MONTELUKAST 10 MG TAB PO SCH (07:47)
[2022-01-06] MEDS: SERTRALINE 100 MG TAB PO SCH (07:48)
[2022-01-06] MEDS: FAMOTIDINE 20 MG TAB PO SCH (07:48)
[2022-01-06] MEDS: lisinopriL 10 MG TAB PO SCH (07:48)
[2022-01-06] MEDS: ALBUTEROL INHALER 60 PUFF/8 GM INHALER (MHU) INHALATION PRN (07:49)
--- NOTE | 2022-01-06 09:48 | P.DS ---
Providers Date of admission: 12/29/21 23:51 Expected date of discharge: 01/06/22 Attending physician: Eder Raya MD Consults: 12/30/21 08:22 Consult Physician Routine Consulting Provider: Librado Physician Consult Reason/Comments: H & P and medical care Do you want consulting provider notified?: Yes Primary care physician: [facility] - Discharge Diagnosis(es) (1) Unspecified psychosis Current Visit: Yes Status: Acute Priority: High (2) Major depressive disorder Current Visit: Yes Status: Acute Priority: Medium (3) Cannabis use disorder, mild, abuse Current Visit: Yes Status: Acute Priority: Low Hospital Course: Admission HPI: Admission note was completed by verse writer "Patient is a 51-year-old female, currently lives with her boyfriend in a house, has 2 kids. Unemployed. Patient presented to the hospital yesterday and was complaining of depression and anxiety and suicidal ideations. Patient was admitted voluntarily to the mental health unit. Patient does not have a psychiatric history and no previous admissions. She was seen today and agreeable to speak to verse writer. Patient was tearful, appeared to be in significant distress. She states that "I don't know what's going on" and was crying. She states that she "ate a sandwich" and claims that my "brain got scrambled". She states that she did go to [facility] however has not received any medications. She states that she has been hearing voices for the past month or so. She claims that the voices are "messed up" or telling her negative things. She also claims that she has been seeing "monsters on the wall". She also describes other visual hallucinations and illusions. She states that she has been crying a lot and feeling irritable. She states that she does not know if her daughter or grandson or not. She appeared to be in significant distress. She states that she is feeling depressed and has been crying. She states that she didn't know what to do about herself and wanted to "jump off a celestino yesterday". She clearly is today is 12/25/2021, now she is in [facility]. She also knows her full name and age. She states that her memory is "very bad" however was able to recall 3 words after 5 minutes with multiple guesses. She also appears to have fair attention span and could spell "world" backwards. She states that her sleep has been poor, appetite is also been fairly poor. Patient denies any suicidal or homicidal ideations intent or plan. Patient denies any flight of ideas racing thoughts and increased in goal directed behavior. Patient admits to using marijuana occasionally." Hospital course: Upon admission to the unit patient was directable and agreeable to commence treatment and signed adult voluntary form. Patient got along well with other patients on the unit and followed unit protocol. Patient was compliant with the medications and denied any side effects throughout hospital course. Patient was started on Zoloft increased to a dose of 100 mg daily for mood/anxiety, Seroquel was started and increased to a dose of 20 mg daily at bedtime for psychosis/insomnia. Patient spoke of her stressors and engaged in therapy both group and individual. Patient was also seen by medical team for history and physical exam. Patient had a computed tomography scan of her brain on admission on 12/30 which showed no acute changes or significant structural abnormalities. Throughout the course of the hospitalization patient gradually improved with regards to mood, anxiety, psychosis/hallucinations, sleep and became more future oriented with improved insight and judgment. On the day of discharge patient denied any suicidal or homicidal ideations intent or plan denied any auditory or visual hallucinations. Patient endorsed wanting to live for her family and her future. The patient denied any access to guns or weapons. Patient denied any paranoia and did not endorse any delusions. Patient does have a significant history of substance abuse and was counseled on abstaining from all substances including alcohol and marijuana. Patient elected to do outpatient substance use treatment program through [facility]. Patient was also counseled on the medications and need for regular compliance and was encouraged to follow-up with their outpatient appointment for mental health and also for primary care. Prior to discharge a family meeting will be arranged by social media specialist to answer any questions and ensure safety upon discharge. Mental status exam: General Appearance: Patient appears to be overweight, wearing glasses, stated age is alert, pleasant, and cooperative. Patient is in no acute distress and has improved hygiene and grooming Behavior: Patient is calmly seated without any agitated behavior. Speech: Patient's speech is fluent and nonpressured. Mood/Affect: Patient reports their mood is "better", affect is congruent and euthymic. Suicidality/Homicidality: Patient denies having any suicidal or homicidal ideation intent or plan. Perceptions: Patient denies any auditory or visual hallucinations. Though content/process: There is no evidence of any delusional thought content and thought process is linear and goal-directed. more future oriented Memory and concentration: AOX3, grossly intact for the purposes of this session. Can spell "WORLD" backwards correctly. Judgment and insight: improved with guarded prognosis Impression: Psychosis unspecified Major depressive disorder Cannabis use disorder mild Plan: -Continue with discharge today as patient has improved and stabilized psychiatrically and is not currently an imminent threat to herself and/or others. Patient will remain at chronically elevated risk for harm to self and/or others due to her impulsivity and substance abuse. -Continue medications: Zoloft 100 mg daily for mood/anxiety, Seroquel 200 mg daily at bedtime for psychosis/insomnia. -Patient was counseled on the need for medication compliance and appropriate follow-up at mental health and also primary care for medical issues. Patient verbalized understanding and agreed. -Social work to arrange for and conduct family meeting to ensure safety upon discharge and answer any questions/concerns. Social work also to arrange for patients follow up appointments with [facility] for psychiatric care along with follow up with primary care provider. -Patient counseled on abstaining from recreational drugs and marijuana and alcohol. Was informed/educated on the adverse effects on their physical and mental health. Patient verbally agreed and understood. -Patient was instructed to return to the hospital or seek immediate medical care if their psychiatric or medical symptoms do worsen or reoccur. Allergies Allergy/AdvReac Type Severity Reaction Status Date / Time acetaminophen [From [place]] Allergy Anaphylaxis Verified 12/29/21 21:18 adhesive tape Allergy Anaphylaxis Verified 12/29/21 21:18 fluticasone furoate Allergy Anaphylaxis Verified 12/29/21 21:18 [From Trelegy Ellipta] hydrocodone [From [place]] Allergy Anaphylaxis Verified 12/29/21 21:18 influenza virus vaccine, Allergy Unknown Verified 12/29/21 21:18 specific tetanus immune globulin Allergy Unknown Verified 12/29/21 21:18 tramadol Allergy Anaphylaxis Verified 12/29/21 21:18 umeclidinium Allergy Anaphylaxis Verified 12/29/21 21:18 [From Trelegy Ellipta] vilanterol Allergy Anaphylaxis Verified 12/29/21 21:[address] [[address] [facility]] Laboratory Results WBC 11.8 k/uL (3.8-10.6) H 12/29/21 16:22 RBC 4.99 m/uL (3.80-5.40) 12/29/21 16:22 Hgb 15.7 gm/dL (11.4-16.0) 12/29/21 16:22 Hct 47.4 % (34.0-46.0) H 12/29/21 16:22 MCV 95.1 fL (80.0-100.0) 12/29/21 16:22 MCH 31.5 pg (25.0-35.0) 12/29/21 16: MCHC 33.1 g/dL (31.0-37.0) 12/29/21 16:22 RDW 13.3 % (11.5-15.5) 12/29/21 16:22 Plt Count 357 k/uL (150-450) 12/29/21 16:22 MPV 7.8 12/29/21 16:22 Neutrophils % 69 % 12/29/21 16:22 Lymphocytes % 21 % 12/29/21 16:22 Monocytes % 7 % 12/29/21 16:22 Eosinophils % 1 % 12/29/21 16:22 Basophils % 1 % 12/29/21 16:22 Neutrophils # 8.1 k/uL (1.3-7.7) H 12/29/21 16:22 Lymphocytes # 2.5 k/uL (1.0-4.8) 12/29/21 16:22 Monocytes # 0.8 k/uL (0-1.0) 12/29/21 16:22 Eosinophils # 0.2 k/uL (0-0.7) 12/29/21 16:22 Basophils # 0.1 k/uL (0-0.2) 12/29/21 16:22 Sodium 139 mmol/L (137-145) 12/29/21 16:22 Potassium 4.3 mmol/L (3.5-5.1) 12/29/21 16:22 Chloride 106 mmol/L (98-107) 12/29/21 16:22 Carbon Dioxide 27 mmol/L (22-30) 12/29/21 16:22 Anion Gap 6 mmol/L 12/29/21 16:22 BUN 17 mg/dL (7-17) 12/29/21 16:22 Creatinine 1.07 mg/dL (0.52-1.04) H 12/29/21 16:22 Est GFR (CKD-EPI)AfAm 69 (>60 ml/min/1.73 sqM) 12/29/21 16:22 Est GFR (CKD-EPI)NonAf 60 (>60 ml/min/1.73 sqM) 12/29/21 16:22 Glucose 101 mg/dL (74-99) H 12/29/21 16:22 Calcium 9.4 mg/dL (8.4-10.2) 12/29/21 16:22 TSH 2.090 mIU/L (0.465-4.680) 12/29/21 16:22 Urine Opiates Screen Not Detected (NotDetected) 12/29/21 16:22 Ur Oxycodone Screen Not Detected (NotDetected) 12/29/21 16:22 Urine Methadone Screen Not Detected (NotDetected) 12/29/21 16:22 Ur Propoxyphene Screen Not Detected (NotDetected) 12/29/21 16:22 Ur Barbiturates Screen Not Detected (NotDetected) 12/29/21 16:22 U Tricyclic Antidepress Not Detected (NotDetected) 12/29/21 16:22 Ur Phencyclidine Scrn Not Detected (NotDetected) 12/29/21 16:22 Ur Amphetamines Screen Not Detected (NotDetected) 12/29/21 16:22 U Methamphetamines Scrn Not Detected (NotDetected) 12/29/21 16:22 U Benzodiazepines Scrn Not Detected (NotDetected) 12/29/21 16:22 Urine Cocaine Screen Not Detected (NotDetected) 12/29/21 16:22 U Marijuana (THC) Screen Not Detected (NotDetected) 12/29/21 16:22 Serum Alcohol <10 mg/dL 12/29/21 16:22 Coronavirus (PCR) Not Detected (Not Detectd) 12/29/21 22:40 Vital Signs Temp 97.3 F L 01/06/22 06:33 Pulse 65 08/01/22 06:33 Resp 16 01/06/22 06:33 BP 116/59 01/06/22 06:33 Pulse Ox 97 01/01/22 08:51 FiO2 Intake & Output 01/05/22 01/06/22 01/06/22 18:59 06:59 18:59 Weight 115.6 kg Patient Condition at Discharge: Stable Plan - Discharge Summary Discharge Rx Participant: No New Discharge Prescriptions: New Albuterol Inhaler [Ventolin Hfa Inhaler] 2 puff INHALATION Q4HR PRN each PRN Reason: Shortness Of Breath Or Wheezing Ipratropium-Albuterol Nebulize [Duoneb 0.5 mg-3 mg/3 ml Soln] 3 ml INHALATION RT-QID PRN #1 each PRN Reason: Shortness Of Breath Or Wheezing QUEtiapine [SEROquel] 200 mg PO HS 30 Days tab Sertraline [Zoloft] 100 mg PO DAILY 30 Days tab Continue Montelukast [Singulair] 10 mg PO DAILY 30 Days tab lisinopriL [Zestril] 10 mg PO DAILY 30 Days tab Budesonide-Formot 160-4.5 Mcg [Symbicort 160-4.5 Mcg Inhaler] 2 puff INHAL ATION RT-BID Famotidine [Pepcid] 20 mg PO BID 30 Days tab Discontinued Albuterol Nebulized [Ventolin Nebulized] 2.5 mg INHALATION RT-QID PRN PRN Reason: Shortness Of Breath Albuterol Inhaler [Ventolin Hfa Inhaler] 2 puff INHALATION RT-Q4H PRN PRN Reason: Shortness Of Breath Ipratropium-Albuterol Nebulize [Duoneb 0.5 mg-3 mg/3 ml Soln] 3 ml INHALATION RT-QID PRN PRN Reason: Shortness Of Breath Discharge Medication List Budesonide-Formot 160-4.5 Mcg [Symbicort 160-4.5 Mcg Inhaler] 2 puff INHALATION RT-BID 12/29/21 [History] Albuterol Inhaler [Ventolin Hfa Inhaler] 2 puff INHALATION Q4HR PRN each 01/06/22 [Rx] Famotidine [Pepcid] 20 mg PO BID 30 Days tab 01/06/22 [Rx] Ipratropium-Albuterol Nebulize [Duoneb 0.5 mg-3 mg/3 ml Soln] 3 ml INHALATION RT-QID PRN #1 each 01/06/22 [Rx] Montelukast [Singulair] 10 mg PO DAILY 30 Days tab 01/06/22 [Rx] QUEtiapine [SEROquel] 200 mg PO HS 30 Days tab 01/06/22 [Rx] Sertraline [Zoloft] 100 mg PO DAILY 30 Days tab 01/06/22 [Rx] lisinopriL [Zestril] 10 mg PO DAILY 30 Days tab 01/06/22 [Rx] Follow up Appointment(s)/Referral(s): [facility] [Outside] - 01/07/22 11:00 am (01-07-22 at 11:00 with Malorie Gaines 01-10-22 at 1:[address] Carlin Ochoa for psych eval) [facility] [Primary Care Provider] - 1-2 days Activity/Diet/Wound Care/Special Instructions: Avoid the use of street drugs and alcohol. Take all prescriptions as prescribed. When you are in need of refills on your medications, please contact your medical provider and/or outpatient psychiatrist to have this done. Please go to scheduled outpatient appointment for aftercare treatment. If symptoms return or become worse, call the crisis line at and/or go to the nearest emergency room for evaluation. Discharge Disposition: HOME SELF-CARE
[2022-01-06] MEDS: IPRATROPIUM-ALBUTEROL 3 ML NEB INHALATION PRN (13:50)
[2022-01-06 13:59] VITALS: PULSE 79
== END 2022-01-06 15:27 | disposition home or self-care (01) | DRG 885 ==
LOC: EC 15:02 → 3MHU 23:51
PROVIDERS: ADMIT Psychiatry & Neurology Psychiatry; ATTEND Psychiatry & Neurology Psychiatry
DX: F33.3 Major depressive disorder, recurrent, severe with psychotic symptoms (principal); R45.851 Suicidal ideations; F12.10 Cannabis abuse, uncomplicated; F17.210 Nicotine dependence, cigarettes, uncomplicated; F41.9 Anxiety disorder, unspecified; G47.00 Insomnia, unspecified; J44.9 Chronic obstructive pulmonary disease, unspecified; E66.3 Overweight; Z79.51 Long term (current) use of inhaled steroids; Z79.899 Other long term (current) drug therapy; Z56.0 Unemployment, unspecified; Z28.310 Unvaccinated for COVID-19; Z28.21 Immunization not carried out because of patient refusal; Z68.39 Body mass index [BMI] 39.0-39.9, adult; Z71.89 Other specified counseling; Z88.5 Allergy status to narcotic agent; Z20.822 Contact with and (suspected) exposure to COVID-19
CPT/HCPCS: 36415; 70450; 80048; 80306; 80320; 82075; 84443; 85025; 87635; 94640; 96360; 99285

== ENCOUNTER 2024-10-07 07:41 | Day surgery (SDC) | payer MEDICARE, OTHER ==
[2024-10-05 12:09] VITALS: BMI 47.4
[~2024-10-07 07:41] MED LIST: LIDOCAINE 1% (10MG/ML) FOR IV START INTRADERMA PRN
[2024-10-07 08:26] VITALS: TEMP 97.3
[2024-10-07] MEDS: LACTATED RINGERS 1,000 ML IV SCH (08:39)
[2024-10-07] MEDS: IV FLUID CONTINUATION 1,000 ML IV ONE (08:42)
[2024-10-07] MEDS: IPRATROPIUM-ALBUTEROL 3 ML NEB INHALATION STA (08:45)
[2024-10-07 08:47] LABS: Glucose,Whole Blood 128 mg/dL (70-110)
[2024-10-07] MEDS ORDERED: PROPOFOL 10 MG/ML 20 ML VIAL IV ONE (09:02)
--- NOTE | 2024-10-07 09:24 | P.PCN ---
Date of Procedure: 10/07/24 Procedure(s) Performed: BRIEF HISTORY: Patient is a 54-year-old pleasant white female scheduled for an elective colonoscopy as a part of screening for colon cancer and family history of colon cancer. Her mother was diagnosed with colon cancer at age 70. PROCEDURE PERFORMED: Colonoscopy with snare polypectomy. PREOPERATIVE DIAGNOSIS: Screening for colon cancer and family history of colon cancer. IV sedation per Anesthesia. PROCEDURE: After informed consent was obtained, the patient, was brought into the endoscopy unit. IV sedation was administered by Anesthesia under continuous monitoring. Digital rectal examination was normal. Initially the Olympus CF-160 flexible video colonoscope was then inserted in the rectum, gradually advanced into the cecum without any difficulty. Careful examination was performed as the scope was gradually being withdrawn. Ileocecal valve and the appendiceal orifice were visualized and appeared normal. Prep was excellent. Mucosa of the cecum, ascending colon, transverse colon, descending colon, appeared normal. In the sigmoid colon there was a 1 cm polyp removed by snare polypectomy. Sigmoid diverticulosis seen. Sigmoid colon, and rectum appeared normal. In the rectum there was a 6 mm polyp removed by cold snare polypectomy. Scattered sigmoid diverticulosis. Retroflexion was performed in the rectum and no lesions were seen. The patient tolerated the procedure well. IMPRESSION: 1 cm sigmoid colon polyp status post snare polypectomy 6 mm rectal polyp status post polypectomy Scattered sigmoid diverticulosis. RECOMMENDATIONS: Findings of this examination were discussed with the patient as well as her family. She was advised to follow with the biopsy results. If the biopsy reveals adenoma she can have repeat colonoscopy in 3 years..
[2024-10-07 09:57] VITALS: BP 128/79; PULSE 63; RESP 18
== END 2024-10-07 10:15 | disposition home or self-care (01) ==
LOC: ORWHC2ENDO 07:41
PROVIDERS: ATTEND Internal Medicine Gastroenterology
DX: Z12.11 Encounter for screening for malignant neoplasm of colon (principal); Z80.0 Family history of malignant neoplasm of digestive organs; Z86.0100 Personal history of colon polyps, unspecified; K57.30 Diverticulosis of large intestine without perforation or abscess without bleeding; D12.5 Benign neoplasm of sigmoid colon; D12.8 Benign neoplasm of rectum
CPT/HCPCS: 45385; J2704; 88305

== ENCOUNTER → 2024-11-29 | Outpatient (CLI) | payer MEDICARE, OTHER ==
[~2024-11-29] MED LIST changes: -LIDOCAINE 1% (10MG/ML) FOR IV START INTRADERMA PRN; +REGADENOSON 0.4 MG/5 ML SYRINGE IV PRN
--- NOTE | 2024-11-29 11:49 | NM ---
EXAMINATION TYPE: NM stress lexiscan cardiolite DATE OF EXAM: 11/29/2024 COMPARISON: NONE CLINICAL INDICATION: Female, 54 years old with history of R06.2 WHEEZING; shortness of breath TECHNIQUE: After the intravenous administration of 9.6 mCi Tc 99m Sestamibi - Cardiolite resting SPE CT images acquired 45 minutes post injection. The patient received 0.4mg Lexiscan, 26.0 mCi Tc 99m Sestamibi - Stress images obtained [address] injection FINDINGS: Review of stress and rest SPECT images demonstrates some apical reversibility. Gated analysis shows n ormal wall motion with an estimated left ventricular ejection fraction of 57 %. TID is measured at 0 .88, within normal limits. IMPRESSION: Some apical reversibility. Correlate with EKG findings. [facility], , 11/29/2024 11:47 AM
--- NOTE | 2024-11-29 14:33 | CA ---
Lexiscan Nuclear Stress Test Report Name: Jessi Bautista Exam Date: 11/29/2024 09:51 Exam Location: [place] Stress Ht (in): 67 Wt (lb): 300 BSA: 2.40 Ordering Phys: Odessa Slater MD Referring Phys: Odessa Slater MD Technologist: RONALDO COLEMAN Age: 54 Gender: F : 1970 Procedure CPT: Indications: R06.2 WHEEZING ICD-10 Codes: Patient History: CHEST PAIN, DIFFICULTY IN BREATHING, PALPITATIONS, DIABETIC, HYPERCHOLESTEROLEMIA, PRIOR SMOKER, PRIOR HEART CATH, COPD Medications: SYMBICORT,,,,,, ROSUVASTATIN,,,,,, FAMOTADINE,,,,,, OMEPRAZOLE,,,,,, QUETIAPINE,,,,,, SERTRALINE,,,,,, FENOFIBRATE,,,,,, JANUVIA,,,,,, VENTOLIN,,,,,, MONJURO,,,,, Meds past 24 hrs: Pretest Chest Pain: STRESS TEST Lexiscan Protocol Exercise Duration (min:sec): 02:[address] Depressions (mm): Angina Score: Corley Score: Resting HR (bpm): 90 Peak HR (bpm): 121 Resting BP (mmHg): 150 / 88 Peak BP (mmHg): 194 / 76 MPHR: 164 Target HR: 139 % MPHR: 74 METS: 1.0 Total Dose: Peak Dose: Atropine: Double Product: 00711 BP Response: Stress Termination: INFUSION COMPLETE Stress Symptoms: DARIEL,NAUSEA Stress Summary: ECG ANALYSIS Resting ECG: Stress ECG: CONCLUSIONS Baseline EKG revealed normal sinus rhythm with poor R wave progression but no ST segment changes. With Lexiscan administration the heart rate went up from 90 to 110 bpm. The blood pressure changed from 150/88 to 138/96. Patient had transient shortness of breath and nausea. EKG remained unremarkable. By EKG criteria this is unremarkable Lexiscan stress test. The nuclear scan results which are more pertinent will be reported by the radiology Dr. Jatinder Milian MD (Electronically Signed) Final Date: 29 November 2024 14:33
== END | disposition home or self-care (01) ==
LOC: RADNMMAIN 07:59
PROVIDERS: ATTEND Family Medicine
DX: R06.2 Wheezing (principal)
CPT/HCPCS: 93017; 78452; A9500; J2785